=== PATIENT | female | born 1970 | race Caucasian/White ===

== ENCOUNTER → 2017-10-10 11:59 | Outpatient (CLI) | payer OTHER, MEDICAID, SELFPAY ==
[2017-10-10 13:08] LABS: Add Manual Diff / Slide Review NO; Basophils Percent Auto 0.8 % (0-2); Eosinophils Percent Auto 5.2 % (2-4); Hemoglobin 14.4 g/dL (12.0-16.0); Lymphocytes Percent Auto 27.9 % (25-40); Mean Corpuscular HGB Conc 34.4 % (30-36); Mean Corpuscular Hemoglobin 27.9 PG (26-34); Mean Corpuscular Volume 81.3 fL (80-100); Monocytes Percent Auto 4.9 % (3-14); Neutrophils Absolute Auto 5200 /uL (3000-5900); Neutrophils Percent Auto 61.2 % (50-75); Platelet Count 272 X10^3/uL (150-400); Red Blood Cell Count 5.16 X10^6/uL (4.0-5.2); Red Cell Distribution Width 14.1 % (11.6-14.8); White Blood Cell Count 8.6 X10^3/uL (4.5-11.0)
[2017-10-10 13:45] LABS: Alanine Aminotransferase 23 IU/L (9-52); Albumin 4.4 g/dL (3.5-5.0); Albumin Globulin Ratio 1.5 (1.0-2.8); Alkaline Phosphatase 84 U/L (38-126); Aspartate Aminotransferase 17 IU/L (14-36); BUN Creatinine Ratio 26.7 (6-22); Bilirubin Total 0.4 mg/dL (0.2-1.3); Bilirubin Unconjugated 0.2 mg/dL (0.0-1.1); Calcium 9.5 mg/dL (8.4-10.2); Cholesterol 190 mg/dL (140-199); Estimated Glomerular Filt Rate > 60.0 mL/min (>60); Glucose 98 mg/dL (70-100); HDL Cholesterol 63 mg/dL (40-60); HEMOLYSIS < 15 (0-50); LDL Cholesterol Calculated 108 mg/dL (<100); Potassium 4.1 mmol/L (3.4-5.1); Sodium 140 mmol/L (137-145); Total Protein 7.4 g/dL (6.3-8.2); Triglycerides 95 mg/dL (35-150)
[2017-10-10 14:03] LABS: Free T4, Direct Thyroxine 0.73 ng/dL (0.78-2.19)
[2017-10-10 14:17] LABS: Thyroid Stimulating Hormone 1.56 uIU/mL (0.47-4.68)
== END ==
PROVIDERS: Family Provider Family Medicine; PCP Family Medicine; Visit Provider Family Medicine
DX: B18.2 Chronic viral hepatitis C (principal)
CPT/HCPCS: 36415; 80053; 80061; 80076; 84439; 84443; 85025; 87522

== ENCOUNTER → 2017-11-25 11:49 | Outpatient (CLI) | payer OTHER, MEDICAID, SELFPAY ==
[2017-11-25 13:40] LABS: Free T4, Direct Thyroxine 0.72 ng/dL (0.78-2.19)
[2017-11-25 13:41] LABS: Free T3, Triiodothyronine Free 2.59 pg/mL (2.77-5.27)
[2017-11-25 13:53] LABS: Thyroid Stimulating Hormone 1.37 uIU/mL (0.47-4.68)
== END ==
PROVIDERS: Family Provider Family Medicine; PCP Family Medicine; Visit Provider Family Medicine
DX: E03.9 Hypothyroidism, unspecified (principal); E78.5 Hyperlipidemia, unspecified
CPT/HCPCS: 36415; 84439; 84443; 84481

== ENCOUNTER → 2017-12-08 15:11 | Outpatient (CLI) | payer OTHER, MEDICAID, SELFPAY ==
[2017-12-08 17:03] LABS: HEMOLYSIS < 15 (0-50); Iron 72 ug/dL (37-170)
[2017-12-08 17:04] LABS: Cholesterol 223 mg/dL (140-199); HDL Cholesterol 82 mg/dL (40-60); LDL Cholesterol Calculated 108 mg/dL (<100); Magnesium 2.5 mg/dL (1.6-2.3); Triglycerides 166 mg/dL (35-150)
[2017-12-08 17:13] LABS: Percent Iron Saturation 21 % (15-50); Total Iron Binding Capacity 348 ug/dL (265-497); Transferrin 298 mg/dL (206-381)
[2017-12-08 17:34] LABS: Cortisol Random 10.8 ug/dL
[2017-12-08 17:38] LABS: Ferritin 28.4 ng/mL (6.27-137)
[2017-12-08 18:09] LABS: Folate > 20.0 ng/mL (2.76-20.0); Vitamin B12 443 pg/mL (239-931)
[2017-12-08 19:21] LABS: Vitamin D 25 Hydroxy (D3) 24.6 ng/mL (30.0-100.0)
[2017-12-10 15:43] LABS: Adrenocorticotropic Hormone 17 pg/mL (6-50); Thyroid Peroxidase Antibodies < 1 IU/mL (< 9)
[2017-12-10 21:36] LABS: Estrogen 331.3 pg/mL
== END ==
PROVIDERS: PCP Family Medicine; Visit Provider Family Medicine
DX: R53.83 Other fatigue (principal); E78.5 Hyperlipidemia, unspecified
CPT/HCPCS: 36415; 80061; 82024; 82306; 82533; 82607; 82672; 82728; 82746; 83540; 83550; 83735; 84432; 84482; 86376

== ENCOUNTER → 2017-12-29 14:18 | Outpatient (CLI) | payer OTHER, MEDICAID, SELFPAY ==
[2017-12-29 14:34] LABS: Add Manual Diff / Slide Review NO; Basophils Percent Auto 0.7 % (0-2); Eosinophils Percent Auto 8.3 % (2-4); Hematocrit 39.6 % (36-46); Hemoglobin 13.7 g/dL (12.0-16.0); Lymphocytes Percent Auto 29.5 % (25-40); Mean Corpuscular HGB Conc 34.6 % (30-36); Mean Corpuscular Hemoglobin 29.3 PG (26-34); Mean Corpuscular Volume 84.7 fL (80-100); Monocytes Percent Auto 5.6 % (3-14); Neutrophils Absolute Auto 4900 /uL (3000-5900); Neutrophils Percent Auto 55.9 % (50-75); Platelet Count 300 X10^3/uL (150-400); Red Blood Cell Count 4.68 X10^6/uL (4.0-5.2); Red Cell Distribution Width 13.8 % (11.6-14.8); White Blood Cell Count 8.7 X10^3/uL (4.5-11.0)
[2017-12-29 15:11] LABS: HCG Quantitative /Beta subunit < 2.39 mIU/mL
[2017-12-29 15:49] LABS: Thyroid Stimulating Hormone 1.35 uIU/mL (0.47-4.68)
[2018-01-03 12:22] LABS: Triiodothyronine T3 Reverse 18 ng/dL (8-25)
== END ==
PROVIDERS: Family Provider Family Medicine; PCP Family Medicine; Visit Provider Family Medicine
DX: R53.83 Other fatigue (principal); N92.0 Excessive and frequent menstruation with regular cycle
CPT/HCPCS: 36415; 84443; 84482; 84702; 85025

== ENCOUNTER → 2018-01-17 11:08 | Outpatient (CLI) | payer OTHER, MEDICAID, SELFPAY ==
--- NOTE | 2018-01-17 11:09 | DI.US.S_ITS ---
PROCEDURE: US PELVIC COMPLETE INDICATIONS: vaginal bleeding TECHNIQUE: Real-time scanning was performed of the pelvic organs, with image documentation. Additional endovaginal scanning was necessary due to incomplete visualization of the adnexal and endometrial structures by transabdominal scanning. COMPARISON: [facility], PELVIC COMPLETE, 07/01/2016, 7:23. [facility], , PELVIC COMPLETE, 11/22/2007, 8:38. FINDINGS: Transabdominal scanning: Limited scanning through the kidneys shows no hydronephrosis. No pathologic free abdominal or pelvic fluid. Endovaginal scanning: Uterus: Uterus is normal in size at 5.4 x 5.9 x 9.7 cm, anteverted. The endometrium measures 7.0 mm in combined thickness. Ovaries: The ovaries not visualized likely due to overlying bowel gas. Depending on the clinical status there may be also postmenopausal ovarian atrophy. IMPRESSION: Normal-appearing uterus, normal appearing endometrium, nonvisualization of the ovaries bilaterally due to bowel gas and presumed postmenopausal ovarian atrophy. Dictated by: Davi Garcia M.D. on 01/17/2018 at 13:47 Approved by: Davi Garcia M.D. on 01/17/2018 at 13:48
== END ==
PROVIDERS: Family Provider Family Medicine; PCP Family Medicine; Visit Provider Family Medicine
DX: N93.9 Abnormal uterine and vaginal bleeding, unspecified (principal)
CPT/HCPCS: 76830; 76856

== ENCOUNTER → 2018-02-27 18:58 | Outpatient (CLI) | payer OTHER, MEDICAID, SELFPAY ==
--- NOTE | 2018-02-27 18:59 | DI.MRI.S_ITS ---
PROCEDURE: MR CERVICAL SPINE WO CON INDICATIONS: pain TECHNIQUE: Noncontrast sagittal T1 spin echo and T2 fast spin echo, sagittal STIR, foraminal oblique sagittal T2 fast spin echo, and axial gradient echo or T2 fast spin echo through the cervical spine. COMPARISON: [facility], , CERVICAL SPINE 2 OR 3 VIEWS, 01/26/2011, 9:42. [facility], MR, C-SPINE WITHOUT CONTRAST, 02/03/2011, 8:13. [facility], MR, C-SPINE WITHOUT CONTRAST, 11/19/2011, 21:01. [facility], MR, C-SPINE WITHOUT CONTRAST, 07/17/2013, 8:31. FINDINGS: Image quality: Diagnostic, with note made of motion artifact. Alignment and Curvature: There is normal bony alignment. Bone Marrow: Marrow demonstrates normal overall signal. Spinal Cord: Visualized spinal cord has normal size and signal. No cerebellar tonsillar herniation. Paraspinous Soft Tissues: No paravertebral masses. Prevertebral soft tissues are normal in thickness. C2-C3: The disc height is well-preserved. Loss of disc signal is seen at this level. Mild generalized disc bulge is seen. There is moderate right-sided and no left-sided neural foraminal narrowing seen. No significant central canal narrowing is seen. Compared to 2014, these degenerative changes have progressed. C3-C4: Mild loss of disc height is seen. Loss of disc signal is seen. Moderate generalized disc osteophyte complex is seen. Moderate facet hypertrophy is seen, left worse than right. There is moderate to severe bilateral neural foraminal narrowing seen. Moderate central canal narrowing is seen. When compared to the prior images, these imaging findings are considered to be not significantly changed. C4-C5: Mild to moderate loss of disc height and disc signal are seen. Moderate to prominent disc osteophyte complex is seen, which is eccentric to the left. There is a left lateral recess/foraminal disc osteophyte protrusion seen, as on series 3 images 21 and 22. Moderate facet joint hypertrophy is seen. There is moderate to severe bilateral neural foraminal narrowing seen. Moderate to severe central canal narrowing is seen. These degenerative changes have progressed compared to 2014. C5-C6: Moderate loss of disc height is seen. Loss of disc signal is seen. Moderate to prominent disc osteophyte complex is seen. Uncovertebral joint hypertrophy is seen at this level. There is moderate to severe bilateral neural foraminal narrowing seen. Severe central canal narrowing is seen in compared to 2014, these degenerative changes have progressed. C6-C7: Mild loss of disc height is seen. Loss of disc signal is seen. Moderate generalized disc osteophyte complex is seen. Moderate facet joint hypertrophy is seen. There is moderate to severe left-sided and at least moderate right-sided neural foraminal narrowing seen. Moderate central canal narrowing is seen. These degenerative changes have progressed compared to the prior MRI. C7-T1: The disc height is relatively well-preserved. Mild to moderate disc osteophyte complex is seen, which is eccentric to the left. There is moderate left-sided and no significant right-sided neural foraminal narrowing. No significant central canal narrowing is seen. These degenerative changes are progressed compared to 2014. IMPRESSION: Multiple levels of cervical spine degenerative change are seen, which have progressed compared to 2014. The degenerative changes are most prominent at the C5-C6 level. Dictated by: Avi Garcia M.D. on 02/28/2018 at 8:46 Approved by: Avi Garcia M.D. on 02/28/2018 at 8:58
== END ==
PROVIDERS: PCP Family Medicine; Visit Provider Family Medicine
DX: M50.31 Other cervical disc degeneration, high cervical region (principal)
CPT/HCPCS: 72141

== ENCOUNTER → 2018-03-09 10:47 | Outpatient (CLI) | payer OTHER, MEDICAID, SELFPAY ==
[2018-03-09 14:10] LABS: Vitamin D 25 Hydroxy (D3) 35.1 ng/mL (30.0-100.0)
== END ==
PROVIDERS: PCP Family Medicine; Visit Provider Family Medicine
DX: E55.9 Vitamin D deficiency, unspecified (principal)
CPT/HCPCS: 36415; 82306

== ENCOUNTER → 2018-05-29 14:27 | Outpatient (CLI) | payer OTHER, MEDICAID, SELFPAY ==
--- NOTE | 2018-05-29 14:32 | DI.RAD.S_ITS ---
PROCEDURE: XR CHEST 2V INDICATIONS: dyspnea on exertion TECHNIQUE: 2 views of the chest were acquired. COMPARISON: [facility], , CHEST 2 VIEW, 11/27/2014, 11:07. FINDINGS: Surgical changes and devices: None. Lungs and pleura: No pleural effusions or pneumothorax. Lungs are clear. Mediastinum: Mediastinal contours are normal. Heart size is normal. Bones and chest wall: No suspicious bony abnormalities. Soft tissues appear unremarkable. IMPRESSION: No acute cardiopulmonary pathology. Dictated by: Daron Clark M.D. on 05/29/2018 at 16:10 Approved by: Daron Clark M.D. on 05/29/2018 at 16:10
[2018-05-29 15:01] LABS: Add Manual Diff / Slide Review NO; Basophils Percent Auto 0.5 % (0-2); Eosinophils Percent Auto 4.5 % (2-4); Hematocrit 39.6 % (36-46); Hemoglobin 13.4 g/dL (12.0-16.0); Lymphocytes Percent Auto 30.1 % (25-40); Mean Corpuscular HGB Conc 33.9 % (30-36); Mean Corpuscular Hemoglobin 28.1 PG (26-34); Mean Corpuscular Volume 82.7 fL (80-100); Neutrophils Absolute Auto 5300 /uL (1500-7000); Neutrophils Percent Auto 58.9 % (50-75); Platelet Count 332 X10^3/uL (150-400); Red Blood Cell Count 4.78 X10^6/uL (4.0-5.2); Red Cell Distribution Width 13.6 % (11.6-14.8)
[2018-05-29 15:29] LABS: Alanine Aminotransferase 23 IU/L (9-52); Albumin 4.2 g/dL (3.5-5.0); Albumin Globulin Ratio 1.6 (1.0-2.8); Alkaline Phosphatase 66 U/L (38-126); Aspartate Aminotransferase 20 IU/L (14-36); Bilirubin Total 0.2 mg/dL (0.2-1.3); Blood Urea Nitrogen 18 mg/dL (7-17); Calcium 9.8 mg/dL (8.4-10.2); Carbon Dioxide 26 mmol/L (22-32); Chloride 104 mmol/L (98-107); Estimated Glomerular Filt Rate > 60.0 mL/min (>60); Globulin 2.6 g/dL (1.7-4.1); Glucose 94 mg/dL (70-100); HEMOLYSIS 20 (0-50); Potassium 4.2 mmol/L (3.4-5.1); Sodium 139 mmol/L (137-145); Total Protein 6.8 g/dL (6.3-8.2)
[2018-05-29 15:41] LABS: Vitamin D 25 Hydroxy (D3) 41.2 ng/mL (30.0-100.0)
[2018-05-29 15:43] LABS: Free T3, Triiodothyronine Free 2.61 pg/mL (2.77-5.27); Free T4, Direct Thyroxine 1.29 ng/dL (0.78-2.19)
[2018-05-29 15:57] LABS: Thyroid Stimulating Hormone 1.17 uIU/mL (0.47-4.68)
[2018-05-29 16:16] LABS: Vitamin B12 525 pg/mL (239-931)
== END ==
PROVIDERS: PCP Family Medicine; Visit Provider Family Medicine
DX: R06.09 Other forms of dyspnea (principal)
CPT/HCPCS: 36415; 71046; 80053; 82306; 82607; 84439; 84443; 84481; 85025

== ENCOUNTER 2018-06-27 12:32 | Day surgery (SDC) | payer OTHER, MEDICAID, SELFPAY ==
[2018-06-27 13:10] VITALS: BP 137/94; PULSE 88; RESP 16; TEMP 36.5; O2SAT 94; BMI 37.3
--- NOTE | 2018-06-27 13:46 | PM.HP.1 ---
History of Present Illness Date Patient Seen: 06/27/18 Time Patient Seen: 13:46 Chief complaint: 44550 SCREENING COLONOSCOPY Narrative: Nick is a very pleasant 48-year-old lady who is here for her 1st colonoscopy. She reports that it is just screening study for her but she does admit she has lots of trouble with constipation. She says it is not a new issue. She has had difficulty with constipation most of her life. She denies any new problems or symptoms related to the function of her GI tract and reports that she needs colonoscopy as per the health maintenance program. Patient History Medical History Anxiety (Chronic ~2013) Depression (Chronic ~1981) Hepatitis C (Chronic ~1988) Herniated disc (Chronic ~2010) Herpes (Chronic ~1989) Post traumatic stress disorder (PTSD) (Chronic ~2010) Substance abuse (Chronic ~1981) Social History household members: family Smoking Status: Former smoker Family & Social History Social History: household members family Tobacco & Substance use: Smoking Status Former smoker Meds Home Medications Medication Instructions Recorded Confirmed Type cetirizine 10 mg PO QDAY PRN #90 tab 11/14/17 06/27/18 Rx omeprazole 20 mg tablet,delayed 20 mg PO BID #60 tab 12/29/17 06/27/18 Rx release duloxetine 60 mg capsule,delayed 60 mg PO QDAY #30 cap 01/05/18 05/29/18 Rx release bupropion HCl [Wellbutrin SR] 150 mg PO BID #60 tab 03/07/18 06/27/18 Rx norethindrone-ethinyl estradiol 1 1 tab PO DAILY #63 tab 03/08/18 06/27/18 Rx mg-35 mcg tablet meloxicam 15 mg tablet 15 mg PO [facility] #90 tab 04/14/18 06/27/18 Rx dextroamphetamine-amphetamine 20 20 mg PO BID #60 tab 05/25/18 06/27/18 Rx mg tablet pregabalin 50 mg capsule 100 mg PO BID #120 cap 06/02/18 06/27/18 Rx duloxetine [Cymbalta] 90 mg PO QDAY 06/27/18 06/27/18 History Allergies Allergy/AdvReac Type Severity Reaction Status Date / Time No Known Drug Allergies Allergy Verified 05/29/18 13:31 Review of Systems Review of Systems All systems reviewed & are unremarkable except as noted in HPI and below Exam Vital Signs (past 8 hours): - 06/27/18 13:10 Temperature 97.7 F Pulse Rate 88 Respiratory Rate 16 Blood Pressure 137/94 H Pulse Oximetry 94 Oxygen Delivery Method Room Air Narrative Exam Narrative: Pleasant, well-nourished, and well-developed 48-year-old lady in no obvious distress HEENT: Normocephalic and atraumatic, pupils equal round reactive to light accommodation with anicteric sclera Lungs: Clear bilaterally Heart: Regular rate and rhythm without murmur rub or gallop Abdomen: Soft, nontender, active bowel sounds Extremities: Warm and well perfused and without edema. Assessment & Plan Plan: Assessment/Plan Narrative: Pleasant and healthy 48-year-old lady with longstanding history of constipation who presents for her 1st screening colonoscopy. We discussed the risks and benefits of the procedure the patient expressed a desire to completed today.
[2018-06-27] MEDS: fentaNYL 250 MCG/5 ML INJ IV (14:42)
[2018-06-27 14:44] VITALS: BP 117/85; PULSE 96; RESP 14; TEMP 36.4; O2SAT 96
[2018-06-27] MEDS: MIDAZOLAM 5 MG/5 ML VIAL IV (14:44)
--- NOTE | 2018-06-27 14:47 | PM.OP.1 ---
Operative Date/Time/Diagnoses Date of procedure: 06/27/18 Time of procedure: 14:47 Pre-op diagnosis: Screening Post-op diagnosis: same Procedure & Clinicians Procedure: Colonoscopy to the cecum Same procedure as scheduled: Yes Indications: No prior colonoscopy Surgeon: Ana Tineo Anesthesia Type: Sedation (Versed 12 mg; fentanyl 350 mcg) Operative Notes Findings: 1. Adequate prep 2. No polyps or mass lesions 3. One 2 mm av malformation in the descending colon. No active bleeding or evidence of recent hemorrhage 4. Mildly tortuous: 5. No visible diverticula 6. Grade 1 internal hemorrhoids Closure Type: not applicable Specimen(s): none sent Procedure in detail: After obtaining informed consent, the patient was brought to the GI suite and placed in the left lateral decubitus position on the examination table. After placement of appropriate monitors, the patient was given incremental doses of Versed and Fentanyl until an appropriate level of sedation was achieved. A time out was held per SCOAP protocol. A digital rectal examination was performed and did not reveal any masses or obstructing lesions. The colonoscope was gently passed into the patient's anus and the entire colon navigated to the level of the cecum with minimal difficulty. Once in the cecum, the scope was withdrawn being sure to go before and beyond all mucosal folds and prominences and get an excellent examination. The findings are noted above. At the level of the rectal vault, the scope was retroflexed and the internal anal canal was examined. The scope was straightened and air aspirated from the colon. The instrument was removed from the patient's body and the procedure was concluded. The patient was allowed to awaken from sedation without difficulty and taken to the post-anesthesia care unit in good condition. Total sedation time was 47 min Total withdrawal time was 10 min 22 sec Complications: none Condition: stable Disposition: PACU Plan for aftercare: 1. Discharge to home 2. Plan for next colonoscopy in 10 years or as clinically indicated
[2018-06-27 14:49] VITALS: BP 121/88; PULSE 83; RESP 18; O2SAT 96
[2018-06-27 14:55] VITALS: BP 148/91; PULSE 79; RESP 16; O2SAT 95
== END 2018-06-27 15:10 | disposition home or self-care (01) ==
PROVIDERS: PCP Family Medicine; Visit Provider Surgery
PROC: 0DJD8ZZ Inspection of Lower Intestinal Tract, Via Natural or Artificial Opening Endoscopic (ICD-10-PCS; CPT 45378; principal; 2018-06-27 14:00)
DX: Z12.11 Encounter for screening for malignant neoplasm of colon (principal); K64.0 First degree hemorrhoids; F41.9 Anxiety disorder, unspecified; Z87.891 Personal history of nicotine dependence
CPT/HCPCS: 45378; 99152; 99153; J2250; J3010

== ENCOUNTER 2018-08-15 09:41 | Outpatient (CLI) | payer OTHER, MEDICAID, SELFPAY ==
[2018-08-15] VITALS (9 sets, daily range): BP systolic 114–124; BP diastolic 61–87; PULSE 75–83; RESP 16–18; TEMP 36.3; O2SAT 95–100
--- NOTE | 2018-08-15 09:42 | DI.RAD.S_ITS ---
PROCEDURE: PAIN C/T INTERLAMINAR INJECT INDICATIONS: Cervical radiculopathy FINDINGS: Fluoroscopic spot filming was performed to verify placement of spinal needles at the left C6-7 level(s), as labeled on the films. Appropriate location(s) of the needle tip(s) was confirmed by injection of iodinated contrast. IMPRESSION: Intraoperative fluoroscopy provided for C6-C7 epidural steroid injection. Dictated by: Lilibeth De La Rosa M.D. on 08/15/2018 at 12:51 Approved by: Lilibeth De L aRosa M.D. on 08/15/2018 at 12:51
[2018-08-15] MEDS: MIDAZOLAM 5 MG/5 ML VIAL IV (10:30)
[2018-08-15] MEDS: fentaNYL 100 MCG/2 ML INJ 50 MCG IV (10:31)
[2018-08-15] MEDS: DEXAMETHASONE 10 MG/ML VIAL 20 MG INJ (10:34)
[2018-08-15] MEDS: LIDOCAINE 1% 20 ML INJ 5 ML INJ (10:34)
[2018-08-15] MEDS: IOPAMIDOL 15 ML VIAL 3 ML INJ (10:35)
--- NOTE | 2018-08-15 10:40 | PC.NURSE ---
ASSISTING PT OFF TABLE AND TRANSPORTING TO POST PROC AREA IN STABLE CONDITION
--- NOTE | 2018-08-15 10:47 | P.PCN_ITS ---
Procedures Date/Time Date of procedure: 08/15/18 Time of procedure: 10:46 General Procedure description: PREOP DIAGNOSIS 1. CERVICAL STENOSIS, 2. CERVICAL HNP WITH UPPER EXTREMITY RADICULAR FEATURES, POST OP DIAGNOSIS 1. CERVICAL STENOSIS, 2. CERVICAL HNP WITH UPPER EXTREMITY RADICULAR FEATURES, PROCEDURES 1. FLUORSCOPICALLY GUIDED CONTRAST CONTROLLED INTERLAMINAR EPIDURAL STEROID INJECTION - C6/7 TL IZABELLA PHYSICIAN: Harrison Martin, DO INDICATIONS Nick is referred by Dr. Alejandre for treatment of Cervical HNP with Upper Extremity Paresthesias. FINDINGS Cervical Stenosis due to disc deterioration and nerve root irritation and nerve root irritation DESCRIPTION OF PROCEDURE Fluoroscopically guided, contrast-controlled C6/7 translaminar epidural steroid injection with conscious sedation. Following denial of allergy and review of potential side effects and complications, including, but not necessarily limited to, infection, allergic reaction, local tissue breakdown, temporary as well as permanent nerve injury, stroke, paralysis, and possible , the patient indicated that patient understood and agreed to proceed. An informed consent document was signed by the patient, witnessed by a nurse, and placed in the patient's chart. Additionally, other treatment options including modalities, medications, and physical therapy were reviewed with the patient. After review of previous anaesthesic history and IV conscious sedation the patient was deemed safe to proceed with todays procedure with IV conscious sedation as ASA class II designation. Safety time-out was performed to confirm patient ID, procedure to be performed and site of procedure. IV sedation was accomplished with a combination of 3mg of Versed and 50mcg of Fentanyl administered by the RN after DO order, titrated to patient comfort during the course of the procedure while the patient remained responsive to all verbal commands. In the prone position, following sterile prep and drape of the cervical region, the C6/7 translaminar space was identified fluoroscopically. The skin was anesthetized via a 25-gauge 1.5-inch needle with 1% lidocaine solution. At this point, a 25-gauge, 2.5-inch short bevel spinal needle was atraumatically in troduced and advanced under fluoroscopic guidance into epidural space at the C6/7 translaminar space. Depth was confirmed on lateral view. Radiological data, including multiple fluoroscopic views of the cervical spine, reveal a spinal needle at the C6/7 translaminar space. Lateral views then show placement of the needle in the epidural space. Subsequent views show contrast material flowing superiorly and inferiorly in the epidural space. DSA fluoroscopy with live contrast injection, once again, confirmed no vascular or intrathecal uptake. At this point, using loss of resistance technique with saline and air, the epidural space was entered. Following negative aspiration, injection of approximately 1.5 cc of Isovue-200 with live fluoroscopy in the AP view confirmed epidural flow in the epidural space without vascular or intrathecal uptake observed. Subsequently, a test dose of 1 cc of 1% lidocaine solution was injected and patient was observed for two minutes without signs or symptoms of complications, including abdominal pain, shortness of breath, bilateral upper or lower extremity weakness, nausea and vomiting, prior to steroid injection. At this point, 2cc or 20mg of dexamethasone was then injected without incident. The patient tolerated the procedure well without signs or symptoms of complications prior to being transferred to the recovery area for further monit oring, The patient was then transferred to the recovery area where they were observed for an appropriate period of time after the injection. The patient reported a VAS score of 6 prior to the procedure and a post-procedure VAS of 0. Total Fluoroscopy Time: 37.0 seconds Total Conscious Time: 24min POST OP INSTRUCTIONS The patient was provided a Pain Log to continue to record their response to the target-specific procedure prior to follow-up visit with the referring provider. Additionally, specific post-injection care instructions and a contact number to our office were provided if concerns arise regarding possible complications associated with the procedure are suspected. Harrison Martin DO Complications: none
--- NOTE | 2018-08-15 11:13 | PC.NURSE ---
Pt returned from post procedure awake, alert and able to move from wheelchair to chair with standby assist. Resumed monitoring from Pat THAPA.
--- NOTE | 2018-08-16 12:59 | PC.NURSE ---
FOLLOW UP CALL MADE, LEFT PHONE MSG WITH CLINIC # IN CASE OF QUESTIONS/CONCERNS.
== END 2018-08-15 11:15 ==
LOC: RAD 09:41
PROVIDERS: PCP Family Medicine; Visit Provider Physical Medicine & Rehabilitation
DX: M48.02 Spinal stenosis, cervical region (principal); M50.123 Cervical disc disorder at C6-C7 level with radiculopathy; M47.22 Other spondylosis with radiculopathy, cervical region; M96.1 Postlaminectomy syndrome, not elsewhere classified; R51 Headache
CPT/HCPCS: 62321; 99152; J1100; J2250; J3010

== ENCOUNTER → 2018-10-27 15:44 | Outpatient (CLI) | payer OTHER, MEDICAID, SELFPAY ==
--- NOTE | 2018-10-27 15:46 | DI.MRI.S_ITS ---
PROCEDURE: MR LUMBAR SPINE WO CON INDICATIONS: radiculopathy TECHNIQUE: Noncontrast sagittal T1 spin echo and T2 fast echo, sagittal STIR, axial T1 and T2 fast spin echo through the lumbar spine. Coronal T1 and T2 sequences of the sacrum. COMPARISON: [facility], MR, L-SPINE W&WO CONTRAST, 01/31/2017, 7:08. [facility], CR, L-SPINE 2-3 VIEWS, 01/18/2017, 15:52. FINDINGS: Image quality: Excellent. Alignment and Curvature: 5 lumbar type vertebral bodies are present by plain film. Mild grade 1 retrolisthesis of L1 on L2 and L2 on L3. Mild grade 1 anterolisthesis of L3 on L4. Bone Marrow: Marrow is of normal overall signal. No acute vertebral body compression fractures. Moderate reactive signal within the endplates adjacent to the L2-L3 intervertebral disc. Mild reactive signal within the endplates adjacent to the L3-L4 intervertebral disc. L2 hemangioma. Sacroiliac joints are within normal limits. Spinal Cord: Conus medullaris terminates at the L1-L2 disc space level. Visualized cord demonstrates normal signal and size. Paraspinous Soft Tissues: No paravertebral masses. 22 mm diameter right ovarian cyst. L1-L2: Moderate disc height loss and desiccation. Mild diffuse disc bulge with superimposed left paracentral protrusion, new since the prior examination. Mild epidural lipomatosis. Mild facet and ligamentum flavum hypertrophy. There is increased, moderate canal stenosis. There is increased, mild left foraminal stenosis. No right foraminal stenosis. There is new mild posterior deviation of the left L2 nerve root within the lateral recess. L2-L3: Severe disc height loss and desiccation. Mild diffuse disc bulge/osteophyte. Mild facet and ligamentum flavum hypertrophy. Mild epidural lipomatosis. There is increased, moderate canal stenosis. There is no change in moderate right and mild left foraminal stenosis. L3-L4: Moderate disc height loss and desiccation. Moderate diffuse disc bulge. Moderate facet hypertrophy bilaterally. Increased, severe canal stenosis. Increased, severe right foraminal stenosis associated with right L3 nerve root compression. No change in moderate left foraminal stenosis. L4-L5: Moderate disc height loss and desiccation. Mild diffuse disc bulge. Mild facet and ligamentum flavum hypertrophy. Mild canal stenosis. Moderate bilateral foraminal stenosis. No change. L5-S1: Moderate disc height loss and desiccation. Mild diffuse disc bulge. Mild facet hypertrophy bilaterally. Mild canal stenosis. Mild bilateral foraminal stenosis. No change. IMPRESSION: 1. Multilevel degenerative disc and facet disease, as well as ligamentum flavum hypertrophy and epidural lipomatosis. 2. Multilevel canal stenoses, worse at L3-L4, where there is severe canal stenosis present. Increased, moderate L1-L2 and L2-L3 canal stenoses. 3. Multilevel foraminal stenoses, worst at L3-L4 on the right, where there is associated right L3 nerve root compression. 4. New mild posterior deviation of the left L2 nerve root within the lateral recess at L1-L2. 5. Recommend correlation with clinical symptoms to ascertain relevance of this finding. Dictated by: Dmitry Wilson M.D. on 10/27/2018 at 16:39 Approved by: Dmitry Wilson M.D. on 10/27/2018 at 16:46
== END ==
PROVIDERS: PCP Family Medicine; Visit Provider Physical Medicine & Rehabilitation
DX: M51.16 Intervertebral disc disorders with radiculopathy, lumbar region (principal); M51.17 Intervertebral disc disorders with radiculopathy, lumbosacral region; M48.061 Spinal stenosis, lumbar region without neurogenic claudication; M48.07 Spinal stenosis, lumbosacral region; E88.2 Lipomatosis, not elsewhere classified
CPT/HCPCS: 72148

== ENCOUNTER 2018-11-09 14:58 | Outpatient (CLI) | payer OTHER, MEDICAID, SELFPAY ==
[2018-11-09] VITALS (8 sets, daily range): BP systolic 109–131; BP diastolic 71–80; PULSE 77–94; RESP 16–18; TEMP 36.2; O2SAT 95–97
--- NOTE | 2018-11-09 15:00 | DI.RAD.S_ITS ---
PROCEDURE: PAIN L/S TRANSFORAMINAL INJECT INDICATIONS: SPONDYLOSIS FINDINGS: Fluoroscopic spot filming was performed to verify placement of spinal needles at the L3-L4 level(s), as labeled on the films. Appropriate location(s) of the needle tip(s) was confirmed by injection of iodinated contrast. Dictated by: Madi Garcia M.D. on 11/10/2018 at 10:13 Approved by: Madi Garcia M.D. on 11/10/2018 at 10:14
[2018-11-09] MEDS: fentaNYL 100 MCG/2 ML INJ 50 MCG IV (15:35)
[2018-11-09] MEDS: MIDAZOLAM 5 MG/5 ML VIAL IV (15:35)
[2018-11-09] MEDS: IOPAMIDOL 15 ML VIAL 3 ML INJ (15:37)
[2018-11-09] MEDS: BUPIVACAINE 0.25% (PF) VIAL 2 ML INJ (15:37)
[2018-11-09] MEDS: BETAMETHASONE 30 MG/5 ML MDV 12 MG INJ (15:39)
--- NOTE | 2018-11-09 15:47 | PC.NURSE ---
Pt tolerated procedure well. Able to get off table with standby assist. Transferred pt via wheelchair to pre procedure room awake and alert for continued monitoring with Pat THAPA.
--- NOTE | 2018-11-09 15:49 | P.PCN_ITS ---
Procedures Date/Time Date of procedure: 11/09/18 Time of procedure: 15:48 General Procedure description: PROVIDER: Harrison Martin DO Operative Note PREOP DIAGNOSIS 1. FORAMINAL STENOSIS WITH LE SYMPTOMS, POST OP DIAGNOSIS 1. FORAMINAL STENOSIS WITH LE SYMPTOMS, PROCEDURES 1. FLUOROSCOPICALLY GUIDED CONTRAST CONTROLLED TRANSFORAMINAL EPIDURAL STEROID INJECTION - RIGHT L3/4 TFESI SURGEON: Harrison Martin, INDICATIONS Nick is referred by Dr. Alejandre for treatment of Foraminal Stenosis with right LE Symptoms FINDINGS Foraminal Nerve Root Compression secondary to disc disease and facet hypertrophy DESCRIPTION OF PROCEDURE Following review of allergy and review of potential side effects and complications, including, but not necessarily limited to, infection, allergic reaction, local tissue breakdown, stroke, temporary or permanent nerve injury, paralysis, and possible , the patient indicated that the patient understood and agreed to proceed. An informed consent document was signed by the patient, witnessed by a nurse, and placed in the patient's chart. Additionally, other treatment options including medications, modalities, and physical therapy were reviewed with the patient. After review of previous anaesthesic history and IV conscious sedation the patient was deemed safe to proceed with todays procedure with IV conscious sedation as ASA class II designation. Safety time-out was performed to confirm patient ID, procedure to be performed and site of procedure. IV sedation was accomplished with a combination of 5mg of Versed and 50mcg of Fentanyl was administered by the RN after DO order, titrated to patient comfort during the course of the procedure while the patient remained responsive to all verbal commands In the prone position following sterile prep and drape of the lumbar region, the right L3/4 posterior neuroforamen was identified fluoroscopically. The skin was anesthetized via a 25-gauge 1.5-inch needle with 1% lidocaine solution. At this point, a 25-gauge 3.5-inch spinal needle was atraumatically introduced and advanced under fluoroscopic guidance through the posterior right L3/4 neuroforamen to approximately the anterior aspect of the canal. Depth was confirmed on lateral view. Following negative aspiration, injection of approximately 1.5 cc of Isovue 200 under live fluoroscopy in the AP view confirmed excellent flow along the nerve root, into the epidural space without vascular or intrathecal uptake observed Radiological data, including multiple fluoroscopic views of the lumbosacral spine, reveal a spinal needle at the right L3/4 posterior neuroforamen. Subs equent views show flow of contrast material flowing superiorly and inferiorly along the nerve root confirming epidural flow. Subsequently, a test dose of 1.5 cc of 1% lidocaine solution was administered and patient was observed for two minutes for signs or symptoms of complications, including abdominal pain, shortness of breath, bilateral upper or lower extremity weakness, nausea and vomiting, prior to steroid injection. At this point, a total of 3cc or 18mg of betamethasone was injected without incident. The patient tolerated the procedure well without signs or symptoms of complications prior to transfer to the recovery area continued monitoring without incident. The patient was then transferred to the recovery area where they were observed for an appropriate time after the injection. The patient reported a VAS score of 7 prior to the procedure and a post-procedure VAS of 0. Total Fluoroscopy Time: 24.2 seconds Total Conscious Sedation Time: 24min POST OP INSTRUCTIONS The patient was provided a Pain Log to continue to record their response to the target-specific procedure prior to follow-up visit with their referring physician. Additionally, specific post-injection care instructions and a contact number to our office were provided if concerns arise regarding possible complications associated with the procedure are suspected. Harrison Martin, Complications: none
== END 2018-11-09 16:19 | disposition home or self-care (01) ==
LOC: RAD 14:59
PROVIDERS: PCP Family Medicine; Visit Provider Physical Medicine & Rehabilitation
DX: M48.061 Spinal stenosis, lumbar region without neurogenic claudication (principal); M51.16 Intervertebral disc disorders with radiculopathy, lumbar region
CPT/HCPCS: 64483; 99152; J0702; J2250; J3010

== ENCOUNTER → 2019-02-16 08:40 | Outpatient (CLI) | payer OTHER, MEDICAID, SELFPAY ==
--- NOTE | 2019-02-16 08:42 | DI.US.S_ITS ---
PROCEDURE: US ABDOMEN COMPLETE INDICATIONS: ABDOMINAL PAIN TECHNIQUE: Real-time scanning was performed of the abdominal and retroperitoneal organs, with image documentation. COMPARISON: [facility], US, US PELVIC COMPLETE, 01/17/2018, 11:35. FINDINGS: Liver: Liver is normal in size and homogeneous in echotexture. Gallbladder: Multiple gallstones present. No gallbladder wall thickening or pericholecystic fluid. Negative sonographic Sheets sign. Biliary ducts: Intrahepatic bile ducts are non-dilated. Extrahepatic bile duct caliber measures 4.0 mm. Normal is 6-7 mm or less in diameter, or 10 mm or less post-cholecystectomy. Pancreas: Not well-visualized. Spleen: Spleen is normal in size and homogeneous in echotexture. Kidneys: Kidneys are normal in size and echotexture. Right kidney measures 11.0 cm long; left kidney measures 10.7 cm long. No hydronephrosis. Calcification noted within the mid aspect of the left kidney measuring 1.0 cm. No solid masses. Aorta: Visualized aorta is normal in caliber at less than 3 cm. Iliacs: Not well-seen. IVC: Intrahepatic inferior vena cava is patent. Miscellaneous: No free abdominal fluid. IMPRESSION: 1. Calcification measuring 1.0 cm above the left kidney which may be related to nonobstructing left renal calculus. If indicated, CT KUB could be performed. 2. Cholelithiasis without acute cholecystitis. Dictated by: Dave SALAS Interpreted: Kristal Jones MD on 02/16/2019 at 9:42 Approved by: Kristal Jones M.D. on 02/16/2019 at 10:51
== END ==
PROVIDERS: PCP Family Medicine; Visit Provider Nurse Practitioner Family
DX: R10.30 Lower abdominal pain, unspecified (principal); N20.0 Calculus of kidney; K80.20 Calculus of gallbladder without cholecystitis without obstruction
CPT/HCPCS: 76700

== ENCOUNTER 2019-03-08 10:55 | Outpatient (CLI) | payer OTHER, MEDICAID, SELFPAY ==
[2019-03-08] VITALS (9 sets, daily range): BP systolic 97–147; BP diastolic 60–91; PULSE 84–93; RESP 16–18; TEMP 37.1; O2SAT 84–98
--- NOTE | 2019-03-08 11:40 | DI.RAD.S_ITS ---
PROCEDURE: PAIN L/SI FACET INJ/BLK 1STL INDICATIONS: SPONDYLOSIS FINDINGS: Fluoroscopic spot filming was performed to verify placement of spinal needles at the L3-L4 level(s), as labeled on the films. Appropriate location(s) of the needle tip(s) was confirmed by injection of iodinated contrast. Dictated by: Madi Garcia M.D. on 03/08/2019 at 14:35 Approved by: Madi Garcia M.D. on 03/08/2019 at 14:36
[2019-03-08] MEDS: fentaNYL 100 MCG/2 ML INJ 50 MCG IV (12:08)
[2019-03-08] MEDS: MIDAZOLAM 5 MG/5 ML VIAL IV (12:13)
[2019-03-08] MEDS: LIDOCAINE 1% 20 ML 5 ML INJ (12:15)
[2019-03-08] MEDS: IOPAMIDOL 15 ML VIAL 3 ML INJ (12:15)
[2019-03-08] MEDS: BUPIVACAINE 0.5% (PF) VIAL 2 ML INJ (12:15)
--- NOTE | 2019-03-08 12:29 | P.PCN_ITS ---
Procedures Date/Time Date of procedure: 03/08/19 Time of procedure: 12:29 General Procedure description: PREOP DIAGNOSIS 1. FACET ARTHROPATHY 2. AXIAL LBP 3. MULTILEVEL DDD POST OP DIAGNOSIS 1. FACET ARTHROPATHY 2. AXIAL LBP 3. MULTILEVEL DDD PROCEDURES 1. FLUORSCOPICALLY GUIDED CONTRAST CONTROLLED FACET JOINT INJECTIONS BILATERAL L3/4, L4/5 PHYSICIAN: Harrison Martin DO INDICATIONS: Nick is referred by Dr. Aeljandre for treatment of Axial LBP FINDINGS Multilevel Facet Arthropathy with Clinically significant axial LBP DESCRIPTION OF PROCEDURE Fluoroscopically guided, contrast-controlled bilateral L3/4 facet joint inject ions. Following review of allergy and review of potential side effects and complications, including, but not necessarily limited to, infection, allergic reaction, local tissue breakdown, stroke, temporary or permanent nerve injury, paralysis, and possible , the patient indicated that the patient understood and agreed to proceed. An informed consent document was signed by the patient, witnessed by a nurse, and placed in the patient's chart. Additionally, other treatment options including medications, modalities, and physical therapy were reviewed with the patient. After review of previous anaesthesic history and IV conscious sedation the patient was deemed safe to proceed with todays procedure with IV conscious sedation as ASA class II designation. Safety time-out was performed to confirm patient ID, procedure to be performed and site of procedure. IV sedation was accomplished with a combination of 4mg of Versed and 50mcg of Fentanyl was administered by the RN after DO order, titrated to patient comfort during the course of the procedure while the patient remained responsive to all verbal commands. In the prone position, following sterile prep and drape of the lumbar region, the posterior aspect of the L3/4 facet joints were identified fluoroscopically. The skin was anesthetized via a 25-gauge 1.5-inch needle with 1% lidocaine solution into the corresponding facet joints. At this point, a 22- gauge 3.5-inch spinal needle was atraumatically introduced and advanced under fluoroscopic guidance into the corresponding facet joints. Following negative aspiration, injections of approximately 0.2-cc of Isovue 200 confirmed interarticular placement without vascular uptake. The identical procedure was then performed at the L3/4 facet joints on the left. Radiological data, including multiple fluoroscopic views of the lumbosacral spine, reveal a spinal needle at the L3/4 facet joints bilaterally. Subsequent views show flow of contrast material both superiorly and inferiorly within the joint space without vascular or intrathecal uptake. At this point, a total of 0.5cc including a mixture of 0.25cc Marcaine and 0.25cc betamethasone was injected without complication into each of the corresponding facet joints. The patient tolerated the procedure well without signs or symptoms of complications prior to transfer to the recovery area continued monitoring without incident. The patient was then transferred to the recovery area where they were observed for an appropriate period of time after the injection. The patient reported a VAS score of 7 prior to the procedure and a post-procedure VAS of 0. Total Fluoroscopy Time: 20.3 seconds Total Conscious Sedation Time: 24min POST OP INSTRUCTIONS The patient was provided a Pain Log to continue to record their response to the target-specific procedure prior to follow-up visit with their referring physician. Additionally, specific post-injection care instructions and a contact number to our office were provided if concerns arise regarding possible complications associated with the procedure are suspected. Harrison Martin, Complications: none
--- NOTE | 2019-03-08 12:36 | PC.NURSE ---
Post procedure note: Time out at 1206. Medicated with Versed 4 mg IV and 50 mcg Fentanyl IV per provider orders. VSS throughout procedure. O2 Sat WNL. Procedure end at 1224. Patient able to sit up and transfer to wheelchair without any difficulty. No unusual numbness or tingling to lower ext. Pain level 3/10. Transported for post procedure monitoring. Hand off report given to Duc Thomas RN.
== END 2019-03-08 13:15 | disposition home or self-care (01) ==
LOC: RAD 10:56
PROVIDERS: PCP Family Medicine; Visit Provider Physical Medicine & Rehabilitation
DX: M47.816 Spondylosis without myelopathy or radiculopathy, lumbar region (principal); M54.5 Low back pain; M51.36 Other intervertebral disc degeneration, lumbar region
CPT/HCPCS: 64493; 64494; 99152; J2250; J3010

== ENCOUNTER 2019-05-08 11:19 | Emergency (ER) | payer OTHER, MEDICAID, SELFPAY ==
[2019-05-08 12:24] VITALS: BP 118/102; PULSE 79; RESP 24; TEMP 36.2; O2SAT 97
[2019-05-08 12:43] VITALS: BP 120/90; PULSE 83; RESP 22; O2SAT 98
--- NOTE | 2019-05-08 12:44 | ED_ITS ---
HPI - Abdominal Pain General Chief Complaint: Abdominal Pain Stated Complaint: stomach pain Time Seen by Provider: 05/08/19 12:20 Source: patient Mode of arrival: Wheelchair Limitations: no limitations History of Present Illness HPI narrative: This 48-year-old female comes to ED secondary to persistent constipation, abdominal pain, nausea and intermittent vomiting. She states that she traveled to [place] about 2 weeks ago, and when she got there started having abdominal pain, constipation, and vomiting. She states she has also had ongoing right side and back pain for the last 2 months, cause has not been determined. She states she had evaluation there and was treated with pain medicine and antibiotics (unknown for what diagnosis), advised to remain in for observation but elected to discharge at that time. She states that she was able to having normal bowel movement for a day or so later. She states that she did travel to other places domestically, no foreign travel. She states that she got home last Tuesday and was seen at her PCP office, advised brat diet and abdominal x-ray was ordered but she states was in too much pain to complete this and was not done. She states that she has not had any bowel movement for about a week. She states that she had some vomiting twice day before yesterday, 3 or 4 times last night, none so far today. She states that she has not been able to keep down fluids or eat secondary to this. She states around the same time that symptoms started she discontinued her Lyrica (unable to get refilled while traveling), and also stopped her omeprazole due to not being covered on insurance. No other medication changes. She states she has not had any urinary symptoms. She states she has had chills, unknown whether any fever at home. She feels thirsty. She denies any upper respiratory symptoms, chest pain, or dyspnea. She has not noted any new extremity swelling. She states that she does feel thirsty. She has not had any new rashes or other new symptoms aside from a little bit of brownish spotting, not sure whether this is vaginal. She denies any possibility of , states on OCP due to heavy menses. She believes that gallstones and kidney stones were found but not felt related to sx Related Data Home Medications Medication Instructions Recorded Confirmed bupropion HCl 150 mg PO BID 05/08/19 05/08/19 cetirizine 10 mg PO DAILY PRN 05/08/19 05/08/19 dextroamphetamine-amphetamine 1 tab PO BID 05/08/19 05/08/19 [Adderall] duloxetine [Cymbalta] 90 mg PO DAILY 05/08/19 05/08/19 levothyroxine 112 mcg PO DAILY 05/08/19 05/08/19 norethindrone-ethin estradiol 1 tab PO DAILY 05/08/19 05/08/19 [Nortrel (21)] pregabalin [Lyrica] 100 mg PO BID 05/08/19 05/08/19 sennosides [senna] 8.6 mg PO BID PRN 05/08/19 05/08/19 Previous Rx's Medication Instructions Recorded diazepam 5 mg tablet 5 mg PO BID PRN #60 tab 03/20/19 methocarbamol 750 mg tablet 750 mg PO QID #90 tab 03/20/19 omeprazole 20 mg tablet,delayed 20 mg PO BID #60 tab 03/20/19 release Allergies Allergy/AdvReac Type Severity Reaction Status Date / Time No Known Drug Allergies Allergy Verified 04/05/19 10:32 Review of Systems Review of Systems ROS Unobtainable: All systems reviewed & are unremarkable except as noted in HPI and below Patient History Medical History (Updated 05/08/19 @ 19:19 by Deja Lopez RN) Anxiety (Chronic ~2013) Depression (Chronic ~1981) Facet arthropathy, lumbosacral (Chronic) Hepatitis C (Chronic ~1988) Herniated disc (Chronic ~2010) Herpes (Chronic ~1989) Post traumatic stress disorder (PTSD) (Chronic ~2010) Substance abuse (Chronic ~1981) Social History household members: family Smoking Status: Former smoker Smoking Status: Former smoker Substance Use Type: does not use Exam Narrative Exam Narrative: GENERAL APPEARANCE: Patient resting, in NAD HEENT: PERRL, EOMI, no scleral icterus, conjunctiva pink NECK: Supple, no masses LUNGS: Clear to auscultation bilaterally. HEART: Rate and rhythm regular, normal S1 and S2, no S3 or S4. ABDOMEN: Soft, bowel sounds present x 4 quadrants, no masses palpable, no hepatosplenomegaly. Moderate generalized lower quadrant tenderness to palpation without guarding or rebound, +sign right CVAT EXTREMITIES: No edema, no cyanosis DERMATOLOGIC: No jaundice or exanthem NEUROLOGIC: Alert and oriented with normal speech and coordination Initial Vital Signs Initial Vital Signs: Vital Signs Temperature 97.2 F L 05/08/19 12:24 Pulse Rate 79 05/08/19 12:24 Respiratory Rate 24 05/08/19 12:24 Blood Pressure 118/102 H 05/08/19 12:24 Pulse Oximetry 97 05/08/19 12:24 Course Course Additional Information: Spoke with radiologist Dr. Shipman who read patient's CT. He advised ovarian cyst appeared simple without other findings. Patient also has some kidney stones as well as spinal stenosis. Reviewed findings with her and advised this could partially account for her pain, ovarian cyst could account for more recent exacerbation of ongoing pain. At that time, we were waiting for patient's urinalysis, as I explained we would want to start antibiotic if concern for infection given her kidney stone. She expressed thanks and was resting comfortably. After urinalysis came back, I went to discuss with her and she was not in the room. She could not be found in the ED. nursing has already called her contact number and left a message for her advised return (see nursing notes). Prior to this I had advised f/u with PCP this week and that additional imaging and eval may be needed and she was agreeable. Orders Ordered: ED Orders 05/08/19 12:37 Complete Blood Count AUTO DIFF Stat Comprehensive Metabolic Panel Stat HCG Quantitative Stat Lipase Stat 05/08/19 13:01 CT abdomen pelvis w con Stat 05/08/19 15:41 Urinalysis and Microscopic Stat Urine Culture Stat Discontinued Medications Sodium Chloride (Normal Saline 0.9%) 1,000 mls @ 150 mls/hr IV CONT EMRE Last Infusion: 05/08/19 16:29 Dose: 0 mls/hr Documented by: Admin: 05/08/19 13:29 Dose: 150 mls/hr Documented by: MARINA Sodium Chloride (Normal Saline 0.9%) 1,000 mls @ 1,000 mls/hr IV BOLUS ONE Stop: 05/08/19 14:38 Last Admin: 05/08/19 17:13 Dose: Not Given Documented by: MEISENNathan Ketorolac Tromethamine (Toradol) 30 mg IV NOW ONE Stop: 05/08/19 13:02 Last Admin: 05/08/19 13:30 Dose: 30 mg Documented by: MARINA Ondansetron HCl (Zofran) 4 mg IV NOW ONE Stop: 05/08/19 13:02 Last Admin: 05/08/19 13:30 Dose: 4 mg Documented by: MARINA Pantoprazole Sodium (Protonix) 40 mg IV NOW ONE Stop: 05/08/19 13:02 Last Admin: 05/08/19 13:30 Dose: 40 mg Documented by: MARINA Vital Signs Vital signs: Vital Signs - 8 hr 05/08/19 12:24 05/08/19 12:43 Temperature 97.2 F L Pulse Rate 79 83 Respiratory Rate 24 22 Blood Pressure 118/102 H Blood Pressure [Left Arm] 120/90 Pulse Oximetry 97 98 MDM - Abdominal Pain Lab Data Attestation: I reviewed the patient's lab results. Result diagrams: 05/08/19 12:37 05/08/19 12:37 Labs: Lab Results 05/08/19 05/08/19 05/08/19 Range/Units 12:37 12:37 12:37 WBC 8.2 (4.5-11.0) X10^3/uL RBC 5.43 H (4.0-5.2) X10^6/uL Hgb 15.6 (12.0-16.0) g/dL Hct 45.7 (36-46) % MCV 84.3 (80-100) fL MCH 28.7 (26-34) PG MCHC 34.1 (30-36) % RDW 13.9 (11.6-14.8) % Plt Count 340 (150-400) X10^3/uL Neut % (Auto) 56.5 (50-75) % Lymph % (Auto) 32.8 (25-40) % Carver % (Auto) 4.7 (3-14) % Eos % (Auto) 5.3 H (2-4) % Baso % (Auto) 0.7 (0-2) % Neut # (Auto) 4600 (8720-2595) /uL Lymph # (Auto) 2700 (3039-9810) /uL Carver # (Auto) 400 (0-900) /uL Eos # (Auto) 400 (0-450) /uL Baso # (Auto) 100 (0-100) /uL Platelet Estimate Adequate on smear Plt Morphology Comment RBC Morphology Normal morphology Sodium 139 (137-145) mmol/L Potassium 4.3 (3.4-5.1) mmol/L Chloride 106 (98-107) mmol/L Carbon Dioxide 26 (22-32) mmol/L BUN 13 (7-17) mg/dL Creatinine 0.70 (0.52-1.04) mg/dL Estimated GFR > 60.0 (>60) mL/min BUN/Creatinine Ratio 18.6 (6-22) Glucose 103 H (70-100) mg/dL Calcium 10.2 (8.4-10.2) mg/dL Total Bilirubin 0.5 (0.2-1.3) mg/dL AST 21 (14-36) IU/L ALT 17 (<35) IU/L Alkaline Phosphatase 78 (38-126) U/L Total Protein 7.5 (6.3-8.2) g/dL Albumin 4.4 (3.5-5.0) g/dL Globulin 3.1 (1.7-4.1) g/dL Albumin/Globulin Ratio 1.4 (1.0-2.8) Lipase 61 (23-300) U/L HCG, Quant < 2.39 mIU/mL Urine Color Urine Appearance Urine pH (4.5-8.0) Ur Specific [employer] (1.000-1.035) Urine Protein (Negative) Urine Glucose (UA) (Negative) g/dL Urine Ketones (NEGATIVE) Urine Occult Blood (Negative) Urine Nitrate (Negative) Urine Bilirubin (NEGATIVE) Urine Urobilinogen (0.2) E.U./dL Ur Leukocyte Esterase (NEGATIVE) Urine RBC (0-5/HPF) Urine WBC (0-5/HPF) Ur Squamous Epith Cells (0-5/HPF) Ur Transition Epith Cell (0-5/HPF) Urine Bacteria (None) Ur Culture Indicated? 05/08/19 Range/Units 15:41 WBC (4.5-11.0) X10^3/uL RBC (4.0-5.2) X10^6/uL Hgb (12.0-16.0) g/dL Hct (36-46) % MCV (80-100) fL MCH (26-34) PG MCHC (30-36) % RDW (11.6-14.8) % Plt Count (150-400) X10^3/uL Neut % (Auto) (50-75) % Lymph % (Auto) (25-40) % Carver % (Auto) (3-14) % Eos % (Auto) (2-4) % Baso % (Auto) (0-2) % Neut # (Auto) (6301-3367) /uL Lymph # (Auto) (3237-8189) /uL Carver # (Auto) (0-900) /uL Eos # (Auto) (0-450) /uL Baso # (Auto) (0-100) /uL Platelet Estimate Plt Morphology Comment RBC Morphology Sodium (137-145) mmol/L Potassium (3.4-5.1) mmol/L Chloride (98-107) mmol/L Carbon Dioxide (22-32) mmol/L BUN (7-17) mg/dL Creatinine (0.52-1.04) mg/dL Estimated GFR (>60) mL/min BUN/Creatinine Ratio (6-22) Glucose (70-100) mg/dL Calcium (8.4-10.2) mg/dL Total Bilirubin (0.2-1.3) mg/dL AST (14-36) IU/L ALT (<35) IU/L Alkaline Phosphatase (38-126) U/L Total Protein (6.3-8.2) g/dL Albumin (3.5-5.0) g/dL Globulin (1.7-4.1) g/dL Albumin/Globulin Ratio (1.0-2.8) Lipase (23-300) U/L HCG, Quant mIU/mL Urine Color Yellow Urine Appearance Clear Urine pH 6.5 (4.5-8.0) Ur Specific [employer] <=1.005 (1.000-1.035) Urine Protein Trace H (Negative) Urine Glucose (UA) Negative (Negative) g/dL Urine Ketones Negative (NEGATIVE) Urine Occult Blood 3+ H (Negative) Urine Nitrate Negative (Negative) Urine Bilirubin Negative (NEGATIVE) Urine Urobilinogen 0.2 (0.2) E.U./dL Ur Leukocyte Esterase Trace H (NEGATIVE) Urine RBC 10-30/hpf H (0-5/HPF) Urine WBC 10-30/hpf H (0-5/HPF) Ur Squamous Epith Cells 1-5 /hpf (0-5/HPF) Ur Transition Epith Cell 1-5/hpf (0-5/HPF) Urine Bacteria Few (2-10) H (None) Ur Culture Indicated? Specimen cultured Imaging Data CT scan - pelvis: Radiologist's impression: Nick Forde R 48 F [address] [address] [address] Scan Report Signed Patient: Nick Forde RMR#: [id number] : 1970Acct:[id number] Age/Sex: 48 / FDate of Service: 05/08/19 Loc: ED Accession Number: [id number] Procedure: CT abdomen pelvis w con Ordering Provider: Harleen Vincent P.A-C PROCEDURE: CT ABDOMEN PELVIS W CON INDICATIONS: LQ, R. flank pain, constipation, vomiting TECHNIQUE: After the administration of intravenous contrast, 5 mm thick sections acquired from the diaphragm to the symphysis. 5 mm coronal and sagittal reformats were acquired. For radiation dose reduction, the following was used: automated exposure control, adjustment of mA and/or kV according to patient size. COMPARISON: None. FINDINGS: Image quality: Excellent. ABDOMEN: Lung bases: Lung bases are clear. Heart size is normal. Solid organs: Liver is normal in size and enhancement. Tiny low-density lesions are consistent with cysts versus hemangiomata. Gallbladder contains multiple gallstones. There is no gallbladder wall thickening or fluid around the gallbladder.. Biliary system is non dilated. Pancreas enhances normally. Spleen is normal in size and enhancement. No adrenal nodules. Kidneys demonstrate normal size and enhancement, without hydronephrosis. Multiple bilateral nonobstructing renal stones. Peritoneum and bowel: Bowel loops demonstrate normal wall thickness and caliber. No free fluid or air. Normal appendix. Moderate right colonic fecal debris. Nodes and vessels: No retroperitoneal or mesenteric adenopathy by size cri teria. Aorta and inferior vena cava are normal in size. Miscellaneous: No ventral hernias. PELVIS: Genitourinary: Bladder wall thickness is normal. Miscellaneous: No inguinal hernias or adenopathy. 3.3 cm right adnexal cyst. Bones: No suspicious bony lesions. No vertebral body compression fractures. Degenerative changes in the lumbar spine with multifactorial whole tenosis at L3-L4 is at least moderate. IMPRESSION: 1. Bilateral nonobstructing renal stones. 2. Normal appendix. 3. 3.3 cm right adnexal cyst. 4. Canal stenosis at L3-L4 incidentally noted. Dictated by: Goldy Shipman M.D. on 05/08/2019 at 15:02 Approved by: Goldy Shipman M.D. on 05/08/2019 at 15:06 Discharge Plan Departure Patient Disposition: Left Against Medical Advice Clinical Impression: Left against medical advice Discharge Date/Time: 05/08/19 16:36 Prescriptions: No Action omeprazole 20 mg tablet,delayed release (DR/EC) 20 mg PO BID Qty: 60 RF: 6 diazepam 5 mg tablet 5 mg PO BID PRN (Reason: muscle spasm) Qty: 60 RF: 0 methocarbamol [Robaxin-750] 750 mg tablet 750 mg PO QID Qty: 90 RF: 3 levothyroxine 112 mcg tablet 112 mcg PO DAILY RF: 0 Nortrel 1/35 (21) 1-35 mg-mcg (21) tablet 1 tab PO DAILY RF: 0 bupropion HCl 150 mg tablet sustained-release 12 hr 150 mg PO BID RF: 0 sennosides [senna] 8.6 mg tablet 8.6 mg PO BID PRN (Reason: Constipation) RF: 0 cetirizine 10 mg tablet 10 mg PO DAILY PRN (Reason: Allergy Symptoms) RF: 0 dextroamphetamine-amphetamine [Adderall] 20 mg tablet 1 tab PO BID RF: 0 duloxetine [Cymbalta] 30 mg capsule,delayed release(DR/EC) 90 mg PO DAILY RF: 0 pregabalin [Lyrica] 50 mg capsule 100 mg PO BID RF: 0 Referrals: Daniel Alejandre MD [Primary Care Provider] - Stand Alone Forms: Against Medical Advice
--- NOTE | 2019-05-08 13:01 | DI.CT.S_ITS ---
PROCEDURE: CT ABDOMEN PELVIS W CON INDICATIONS: LQ, R. flank pain, constipation, vomiting TECHNIQUE: After the administration of intravenous contrast, 5 mm thick sections acquired from the diaphragm to the symphysis. 5 mm coronal and sagittal reformats were acquired. For radiation dose reduction, the following was used: automated exposure control, adjustment of mA and/or kV according to patient size. COMPARISON: None. FINDINGS: Image quality: Excellent. ABDOMEN: Lung bases: Lung bases are clear. Heart size is normal. Solid organs: Liver is normal in size and enhancement. Tiny low-density lesions are consistent with cysts versus hemangiomata. Gallbladder contains multiple gallstones. There is no gallbladder wall thickening or fluid around the gallbladder.. Biliary system is non dilated. Pancreas enhances normally. Spleen is normal in size and enhancement. No adrenal nodules. Kidneys demonstrate normal size and enhancement, without hydronephrosis. Multiple bilateral nonobstructing renal stones. Peritoneum and bowel: Bowel loops demonstrate normal wall thickness and caliber. No free fluid or air. Normal appendix. Moderate right colonic fecal debris. Nodes and vessels: No retroperitoneal or mesenteric adenopathy by size criteria. Aorta and inferior vena cava are normal in size. Miscellaneous: No ventral hernias. PELVIS: Genitourinary: Bladder wall thickness is normal. Miscellaneous: No inguinal hernias or adenopathy. 3.3 cm right adnexal cyst. Bones: No suspicious bony lesions. No vertebral body compression fractures. Degenerative changes in the lumbar spine with multifactorial whole tenosis at L3-L4 is at least moderate. IMPRESSION: 1. Bilateral nonobstructing renal stones. 2. Normal appendix. 3. 3.3 cm right adnexal cyst. 4. Canal stenosis at L3-L4 incidentally noted. Dictated by: Goldy Shipman M.D. on 05/08/2019 at 15:02 Approved by: Goldy Shipman M.D. on 05/08/2019 at 15:06
[2019-05-08] MEDS: SODIUM CHLORIDE 0.9% 1,000 ML 150 ML IV (13:29)
[2019-05-08] MEDS: ONDANSETRON 4 MG/2 ML INJ IV (13:30)
[2019-05-08] MEDS: PANTOPRAZOLE 40 MG VIAL IV (13:30)
[2019-05-08] MEDS: KETOROLAC 60 MG/2 ML VIAL 30 MG IV (13:30)
[2019-05-08 13:36] LABS: Basophils Absolute Auto 100 /uL (0-100); Basophils Percent Auto 0.7 % (0-2); Eosinophils Absolute Auto 400 /uL (0-450); Eosinophils Percent Auto 5.3 % (2-4); Hematocrit 45.7 % (36-46); Hemoglobin 15.6 g/dL (12.0-16.0); Lymphocytes Absolute Auto 2700 /uL (1100-4500); Lymphocytes Percent Auto 32.8 % (25-40); Mean Corpuscular HGB Conc 34.1 % (30-36); Mean Corpuscular Hemoglobin 28.7 PG (26-34); Mean Corpuscular Volume 84.3 fL (80-100); Monocytes Absolute Auto 400 /uL (0-900); Monocytes Percent Auto 4.7 % (3-14); Neutrophils Absolute Auto 4600 /uL (1500-7000); Neutrophils Percent Auto 56.5 % (50-75); Platelet Count 340 X10^3/uL (150-400); Red Blood Cell Count 5.43 X10^6/uL (4.0-5.2); Red Cell Distribution Width 13.9 % (11.6-14.8); White Blood Cell Count 8.2 X10^3/uL (4.5-11.0)
[2019-05-08 13:45] LABS: Alanine Aminotransferase 17 IU/L (<35); Albumin 4.4 g/dL (3.5-5.0); Albumin Globulin Ratio 1.4 (1.0-2.8); Alkaline Phosphatase 78 U/L (38-126); Aspartate Aminotransferase 21 IU/L (14-36); BUN Creatinine Ratio 18.6 (6-22); Bilirubin Total 0.5 mg/dL (0.2-1.3); Blood Urea Nitrogen 13 mg/dL (7-17); Calcium 10.2 mg/dL (8.4-10.2); Carbon Dioxide 26 mmol/L (22-32); Chloride 106 mmol/L (98-107); Estimated Glomerular Filt Rate > 60.0 mL/min (>60); Globulin 3.1 g/dL (1.7-4.1); Glucose 103 mg/dL (70-100); HEMOLYSIS < 15 (0-50); Lipase 61 U/L (23-300); Potassium 4.3 mmol/L (3.4-5.1); Sodium 139 mmol/L (137-145); Total Protein 7.5 g/dL (6.3-8.2)
[2019-05-08 13:51] LABS: Add Manual Diff / Slide Review SLIDE REVIEW
[2019-05-08 14:11] LABS: Platelet Estimate Adequate on smear; RBC Morphology Normal Morphology
[2019-05-08 14:27] LABS: HCG Quantitative /Beta subunit < 2.39 mIU/mL
[2019-05-08 15:44] LABS: Appearance Urine UA CLEAR; Bilirubin Urine UA NEGATIVE (NEGATIVE); Color Urine UA YELLOW; Glucose Urine UA NEGATIVE (Negative); Ketones Urine UA NEGATIVE (NEGATIVE); Leukocyte Esterase Urine UA TRACE (NEGATIVE); Nitrite Urine UA NEGATIVE (Negative); Occult Blood Urine UA 3+ (Negative); Protein Urine UA TRACE (Negative); Specific Gravity Urine UA <=1.005 (1.000-1.035); Urobilinogen Urine UA 0.2 E.U./dL (0.2)
[2019-05-08 16:06] LABS: pH Urine UA 6.5 (4.5-8.0)
[2019-05-08 16:18] LABS: RBC Urine 10-30/HPF (0-5/HPF)
[2019-05-08 16:19] LABS: Bacteria Urine Few (2-10); Culture Indicated Urine Specimen Cultured; Squamous Epithelial Cell Urine 1-5 /HPF (0-5/HPF); Transitional Epi Cells Urine 1-5/HPF (0-5/HPF); WBC Urine 10-30/HPF (0-5/HPF)
--- NOTE | 2019-05-08 16:36 | PC.NURSE ---
called pt and left message. [phone]
== END 2019-05-08 16:36 | disposition left against medical advice (07) ==
PROVIDERS: Emergency Provider Internal Medicine; PCP Family Medicine
DX: R10.9 Unspecified abdominal pain (principal); R11.2 Nausea with vomiting, unspecified
CPT/HCPCS: 36415; 74177; 80053; 81001; 83690; 84702; 85025; 87086; 96361; 96374; 96375; 99284; C9113; J1885; J2405; Q9967

== ENCOUNTER → 2019-05-15 15:12 | Outpatient (CLI) | payer OTHER, MEDICAID, SELFPAY ==
--- NOTE | 2019-05-15 15:13 | DI.US.S_ITS ---
PROCEDURE: US PELVIC COMPLETE INDICATIONS: PELVIC PAIN TECHNIQUE: Real-time scanning was performed of the pelvic organs, with image documentation. Additional endovaginal scanning was necessary due to incomplete visualization of the adnexal and endometrial structures by transabdominal scanning. COMPARISON: [facility], , US PELVIC COMPLETE, 01/17/2018, 11:35. FINDINGS: Transabdominal scanning: Limited scanning through the kidneys shows no hydronephrosis. No pathologic free abdominal or pelvic fluid. Endovaginal scanning: Uterus: Uterus is normal in size at 10.6 x 5.0 x 5.4 cm. The endometrium measures 8.5 mm in combined thickness. Echogenic foci within the endometrium suggests presence of punctate calcifications. Ovaries: The right ovary measures 4.8 x 3.2 x 3.2 cm. There is a 3.8 x 2.7 x 2.8 cm simple cyst. The left ovary is not visualized. IMPRESSION: 1. Simple right ovarian cyst. This is within physiologic limits for size in a premenopausal female. Dictated by: Allie Parisi M.D. on 05/15/2019 at 15:22 Approved by: Allie Parisi M.D. on 05/15/2019 at 15:23
== END ==
PROVIDERS: PCP Family Medicine; Visit Provider Family Medicine
DX: R10.2 Pelvic and perineal pain (principal); N83.291 Other ovarian cyst, right side
CPT/HCPCS: 76830; 76856

== ENCOUNTER → 2019-11-13 09:22 | Outpatient (CLI) | payer OTHER, MEDICAID, SELFPAY | PROVIDERS: PCP Family Medicine; Visit Provider Family Medicine | DX: R30.0 Dysuria (principal); R82.998 Other abnormal findings in urine | CPT/HCPCS: 87086 ==

== ENCOUNTER → 2020-04-22 08:53 | Outpatient (CLI) | payer OTHER, MEDICAID, SELFPAY ==
[2020-04-22 09:55] LABS: Add Manual Diff / Slide Review NO; Basophils Absolute Auto 0 /uL (0-100); Basophils Percent Auto 0.8 % (0-2); Eosinophils Absolute Auto 300 /uL (0-450); Eosinophils Percent Auto 5.2 % (2-4); Hematocrit 41.6 % (36-46); Hemoglobin 13.8 g/dL (12.0-16.0); Lymphocytes Absolute Auto 2100 /uL (1100-4500); Mean Corpuscular HGB Conc 33.1 % (30-36); Mean Corpuscular Volume 84.7 fL (80-100); Monocytes Absolute Auto 300 /uL (0-900); Monocytes Percent Auto 5.9 % (3-14); Neutrophils Absolute Auto 3100 /uL (1500-7000); Neutrophils Percent Auto 52.1 % (50-75); Platelet Count 341 X10^3/uL (150-400); Red Blood Cell Count 4.91 X10^6/uL (4.0-5.2); Red Cell Distribution Width 13.5 % (11.6-14.8); White Blood Cell Count 5.9 X10^3/uL (4.5-11.0)
[2020-04-22 10:15] LABS: Alanine Aminotransferase 14 IU/L (<35); Albumin 4.4 g/dL (3.5-5.0); Albumin Globulin Ratio 1.3 (1.0-2.8); Alkaline Phosphatase 59 U/L (38-126); Aspartate Aminotransferase 24 IU/L (14-36); BUN Creatinine Ratio 16.7 (6-22); Bilirubin Total 0.7 mg/dL (0.2-1.3); Blood Urea Nitrogen 12 mg/dL (7-17); Calcium 9.8 mg/dL (8.4-10.2); Carbon Dioxide 27 mmol/L (22-32); Chloride 106 mmol/L (98-107); Cholesterol 218 mg/dL (140-199); Estimated Glomerular Filt Rate > 60.0 mL/min (>60); Globulin 3.3 g/dL (1.7-4.1); Glucose 104 mg/dL (70-100); HDL Cholesterol 56 mg/dL (40-60); HEMOLYSIS 45 (0-50); LDL Cholesterol Calculated 136 mg/dL (<100); Potassium 4.2 mmol/L (3.4-5.1); Sodium 136 mmol/L (137-145); Total Protein 7.7 g/dL (6.3-8.2); Triglycerides 132 mg/dL (35-150)
[2020-04-22 16:59] LABS: Hep C Virus Ab w/Reflex Quant REACTIVE s/c (NEGATIVE)
== END ==
PROVIDERS: PCP Family Medicine; Referring Provider Family Medicine; Visit Provider Family Medicine
DX: F41.9 Anxiety disorder, unspecified (principal); Z86.19 Personal history of other infectious and parasitic diseases
CPT/HCPCS: 36415; 80053; 80061; 84443; 85025; 86803; 87522

== ENCOUNTER → 2020-07-10 09:05 | Outpatient (CLI) | payer OTHER, MEDICAID, SELFPAY ==
--- NOTE | 2020-07-10 09:06 | DI.RAD.S_ITS ---
PROCEDURE: XR HAND RT MIN 3V INDICATIONS: Right hand pain TECHNIQUE: 3 views of the hand(s) acquired. COMPARISON: None. FINDINGS: Bones: No fractures or dislocations. Carpal bones are normally aligned. No suspicious bony lesions. Normal bone mineralization. No osseous erosions or periarticular osteopenia. Soft tissues: No suspicious soft tissue calcifications. IMPRESSION: Right hand without acute radiographic abnormalities. If there are persistent symptoms or clinical suspicion for pathology, then repeat radiographs or advanced imaging (CT, MRI or bone scan) may be considered for further evaluation. Dictated by: Edmund De Leon M.D. on 07/11/2020 at 13:05 Approved by: Edmund De Leon M.D. on 07/11/2020 at 13:07
[2020-07-10 11:01] LABS: C-Reactive Protein Quant 0.8 mg/dL (<1.0)
[2020-07-10 11:02] LABS: Erythrocyte Sedimentation Rate 1 MM/HR (0-20)
[2020-07-10 11:08] LABS: Free T3, Triiodothyronine Free 3.71 pg/mL (2.77-5.27); Free T4, Direct Thyroxine 0.98 ng/dL (0.78-2.19)
[2020-07-10 11:21] LABS: Thyroid Stimulating Hormone 1.56 uIU/mL (0.47-4.68)
[2020-07-11 14:45] LABS: ANA Screen, IFA Negative (.)
[2020-07-16 19:57] LABS: Vitamin D 25 Hydroxy (D3) 50.8 ng/mL (30.0-100.0)
== END ==
PROVIDERS: PCP Family Medicine; Referring Provider Family Medicine; Visit Provider Family Medicine
DX: M79.644 Pain in right finger(s) (principal); E07.9 Disorder of thyroid, unspecified; G89.4 Chronic pain syndrome
CPT/HCPCS: 36415; 73130; 82306; 84439; 84443; 84481; 85651; 86038; 86140

== ENCOUNTER → 2021-05-14 14:40 | Outpatient (CLI) | payer OTHER, MEDICAID, SELFPAY ==
--- NOTE | 2021-05-14 14:44 | DI.RAD.S_ITS ---
PROCEDURE: XR LUMBAR SPINE MIN 4V INDICATIONS: lower back pain TECHNIQUE: 5 views of the lumbar spine acquired, including flexion and extension views. COMPARISON: [facility], , L-SPINE 2-3 VIEWS, 01/18/2017, 15:52. FINDINGS: Bones: 5 nonrib-bearing vertebrae are present. Mild levoscoliosis centered at the L3 level. Posterior/interbody fusion at the L3-L4 level with intact fixation hardware and intervertebral disc spacer. Multilevel disc degeneration, severe at the L5-S1 level. Moderate L4-L5 and L5-S1 facet joint arthropathy.. No vertebral body compression fractures. No suspicious bony lesions. Soft tissues: Overlying bowel gas pattern is normal. No suspicious soft tissue calcifications. IMPRESSION: 1. Prior posterior/interbody fusion L3-L4. 2. Multilevel spondylosis similar to prior examination. Dictated by: Dave Bernal [facility] Interpreted: Daron Clark MD on 05/14/2021 at 15:05 Transcribed by: ADI on 05/14/2021 at 15:07 Approved by: Daron Clark M.D. on 05/14/2021 at 15:35
[2021-05-14 15:25] LABS: Appearance Urine UA SL CLOUDY; Bilirubin Urine UA NEGATIVE (NEGATIVE); Color Urine UA YELLOW; Glucose Urine UA NEGATIVE (Negative); Ketones Urine UA NEGATIVE (NEGATIVE); Leukocyte Esterase Urine UA 1+ (NEGATIVE); Nitrite Urine UA NEGATIVE (Negative); Occult Blood Urine UA 1+ (Negative); Protein Urine UA NEGATIVE (Negative); Specific Gravity Urine UA 1.025 (1.000-1.035); Urobilinogen Urine UA 0.2 E.U./dL (0.2)
[2021-05-14 15:55] LABS: RBC Urine 1-5/HPF (0-5/HPF); Squamous Epithelial Cell Urine 1-5 /HPF (0-5/HPF); WBC Urine 30-100/HPF (0-5/HPF)
[2021-05-14 15:56] LABS: Bacteria Urine Moderate (10-30); Culture Indicated Urine Specimen Cultured
== END ==
PROVIDERS: PCP Family Medicine; Referring Provider Obstetrics & Gynecology; Visit Provider Obstetrics & Gynecology
DX: M47.26 Other spondylosis with radiculopathy, lumbar region (principal); M51.17 Intervertebral disc disorders with radiculopathy, lumbosacral region; M51.16 Intervertebral disc disorders with radiculopathy, lumbar region; M96.1 Postlaminectomy syndrome, not elsewhere classified; R35.0 Frequency of micturition; M47.27 Other spondylosis with radiculopathy, lumbosacral region; M54.50 Low back pain, unspecified; G89.29 Other chronic pain; Z98.1 Arthrodesis status
CPT/HCPCS: 72110; 81001; 87077; 87086; 87186

== ENCOUNTER → 2021-06-04 12:42 | Outpatient (CLI) | payer OTHER, MEDICAID, SELFPAY ==
[2021-06-04 13:22] LABS: Appearance Urine UA SL CLOUDY; Bilirubin Urine UA NEGATIVE (NEGATIVE); Color Urine UA YELLOW; Glucose Urine UA NEGATIVE (Negative); Ketones Urine UA NEGATIVE (NEGATIVE); Leukocyte Esterase Urine UA 2+ (NEGATIVE); Nitrite Urine UA NEGATIVE (Negative); Occult Blood Urine UA TRACE-INTACT (Negative); Protein Urine UA NEGATIVE (Negative); Urobilinogen Urine UA 0.2 E.U./dL (0.2)
[2021-06-04 13:25] LABS: pH Urine UA 5.5 (4.5-8.0)
[2021-06-04 13:38] LABS: Bacteria Urine Few (2-10); Culture Indicated Urine Cult Not Indicated; RBC Urine 1-5/HPF (0-5/HPF); Squamous Epithelial Cell Urine 5-10 /HPF (0-5/HPF); WBC Urine 5-10/HPF (0-5/HPF)
== END ==
PROVIDERS: PCP Family Medicine; Referring Provider Obstetrics & Gynecology; Visit Provider Obstetrics & Gynecology
DX: R35.0 Frequency of micturition (principal); R39.9 Unspecified symptoms and signs involving the genitourinary system; N39.0 Urinary tract infection, site not specified
CPT/HCPCS: 81003; 81015; 87086

== ENCOUNTER → 2021-07-08 15:18 | Outpatient (CLI) | payer OTHER, MEDICAID, SELFPAY ==
[2021-07-08 16:19] LABS: COVID19 -Nasal RAPID Negative (Negative)
== END ==
PROVIDERS: PCP Family Medicine; Visit Provider Obstetrics & Gynecology
DX: Z01.812 Encounter for preprocedural laboratory examination; Z20.822 Contact with and (suspected) exposure to COVID-19
CPT/HCPCS: 87635; C9803

== ENCOUNTER → 2021-07-09 12:37 | Day surgery (SDC) | payer OTHER, MEDICAID, SELFPAY ==
[2021-06-26 11:37] VITALS: BMI 34.7
[2021-07-09] MEDS: LACTATED RINGERS 1,000 ML 84 ML IV (13:07)
[2021-07-09 13:09] VITALS: BP 139/85; PULSE 89; RESP 16; TEMP 37.1; O2SAT 98; BMI 34.7
--- NOTE | 2021-07-09 13:34 | PM.PREOP ---
Pre-operative Note COVID-19 COVID-19 status: Negative Result date/Date tested (Pos, Neg/Pending): 07/08/21 Criteria for continued procedure: Expected advancement of disease process Interval Note History & Physical reviewed/Exam performed by Physician: Yes Changes to H&P: No
--- NOTE | 2021-07-09 14:40 | SUR.PREOP ---
pt's surgery delayed for at least [address] Owens speaks to pt and she decides to reschedule. Left at 1440
== END ==
PROVIDERS: PCP Family Medicine; Referring Provider Obstetrics & Gynecology; Visit Provider Obstetrics & Gynecology
DX: Z53.09 Procedure and treatment not carried out because of other contraindication (principal)
CPT/HCPCS: 57522; J2250; J2704; J3010

== ENCOUNTER → 2021-08-05 14:36 | Outpatient (CLI) | payer OTHER, MEDICAID, SELFPAY ==
[2021-08-05 15:10] LABS: COVID19 -Nasal RAPID Negative (Negative)
== END ==
PROVIDERS: PCP Family Medicine; Visit Provider Obstetrics & Gynecology
DX: Z20.822 Contact with and (suspected) exposure to COVID-19 (principal); Z01.812 Encounter for preprocedural laboratory examination
CPT/HCPCS: 87635; C9803

== ENCOUNTER 2021-08-06 12:29 | Day surgery (SDC) | payer OTHER, MEDICAID, SELFPAY ==
[2021-08-05 09:39] VITALS: BMI 34.7
--- NOTE | 2021-08-06 | PATH_ITS ---
[facility] Accession Number: [id number] No. of containers..02 Tissue . 01 Material submitted: . PART A: cervix - LEEP, CONE BIOPSY @ 12:00 PART B: endocervix - ENDOCERVICAL CURETTING . 02 Diagnosis: A. 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 Inked margins are negative for neoplasm. No evidence of invasive carcinoma. . B. Endocervix, Curetting: Scant endocervical epithelium in a background of mucus. No evidence of neoplasia. [facility] 08/13/2021 0834 Local . 02 Electronically signed: . Myesha Dahl MD, Pathologist NPI- [id number] . 01 Gross description: . A. Received in formalin, labeled with the patient's name and additionally labeled LEEP cone biopsy at 12 o'clock is an irregular, partially disrupted portion of cervix measuring 1.5 x 1.3 cm excised to a depth of 0.8 cm. No suture or other marking is identified. Thus, the disrupted edge of the specimen is arbitrarily designated 12 o'clock. Also present is an aggregate of carlson mucoid material and tissue fragments measuring 1.3 x 0.5 x 0.1 cm. The main specimen is inked as follows: endocervical margin orange, deep/peripheral margin blue. The mucosal surface is carlson, smooth and glistening with no masses or lesions identified. The specimen is entirely submitted as follows: . A1: 9-12 o'clock. A2: 12-3 o'clock. A3: 6-9 o'clock. A4: 3-6 o'clock. A5: Additional mucoid material, wrapped. . B. Received in a scant amount of formalin, labeled with the patient's name and additionally labeled endocervical curetting is an irregular portion of carlson-brown mucoid and hemorrhagic material measuring 1.0 x 0.7 x 0.3 cm. The specimen is wrapped and entirely submitted in cassette B1. ([id number]) /MRV 08/09/2021 1620 Local . 02 Pathologist provided ICD-10: N87.0 . 02 CPT . 700755, [id number] Specimen Comment: A courtesy copy of this report has been sent to [phone] Performed at: 01 [facility] [address] [place] [address], [place], [place] [id number] MD Epifanio Slaughter MD Phone: [phone] Performed at: 02 [facility] [address] [place] [id number] MD Myesha Dahl MD Phone: [phone]
[2021-08-06 12:52] VITALS: BP 125/77; PULSE 85; RESP 15; TEMP 36.6; O2SAT 97; BMI 34.7
[2021-08-06] MEDS: LACTATED RINGERS 1,000 ML 42 ML IV (13:00)
--- NOTE | 2021-08-06 13:38 | PM.PREOP ---
Pre-operative Note COVID-19 COVID-19 status: Negative Result date/Date tested (Pos, Neg/Pending): 08/06/21 Criteria for continued procedure: Non-surgical alternatives not available or appropriate per current SOC Interval Note History & Physical reviewed/Exam performed by Physician: Yes Changes to H&P: No
--- NOTE | 2021-08-06 13:39 | PM.GYNOP.1 ---
Operative Date/Time/Diagnoses Date of procedure: 08/06/21 Time of procedure: 14:10 Pre-op diagnosis: High Grade Squamous Intraepithelial Lesion (HGSIL) Post-op diagnosis: same Procedure & Clinicians Procedure: Procedures Operation Date: 08/06/21 13:30 LOOP ELECTRICAL EXCISION PROCEDURE (LEEP) Indications: Nick is a 51-year-old with a history of HGSIL on cervical biopsy who is scheduled for loop electrosurgical excision procedure (LEEP) scheduled for the main OR of [facility] on 07/09/2021.? She presents today for her scheduled surgery. Surgeon: Umberto Owens Anesthesia Type: General Operative Notes Findings: Minimal AWE changes at transformation zone. Closure Type: not applicable Specimen(s): other (LEEP Cone biopsy, cut at 12:00; Endocervical curettings) Estimated blood loss (mL): 15 Blood products transfused: none Procedure in detail: With the patient under satisfactory general anesthesia in the modified dorsal lithotomy position, the perineum vagina and lower abdomen were prepped and draped in the usual manner for LEEP cone. A pre-surgical safety time-out was then taken in accordance with [facility] OR protocols. A LEEP speculum was then placed in the vagina and suction attached. The cervix was easily visualized and soaked with vinegar solution. Minimal aceto-white epithelium was noted at the transformation zone and a 20 x 10 mm LEEP electrode with 50 w pure cut was used to excise the LEEP cone in the usual manner. The specimen was cut at 12:00 p.m. and submitted in formalin for pathologic analysis. Endocervical curettage was then accomplished with a cup or can box curette and a 2nd pathologic specimen, endocervical curettings, was similarly submitted. A ball electrode was used to coagulate the LEEP bed with a 50 w coagulation setting and at the end of that process hemostasis of the cone bed was complete. The speculum was then removed from the vagina, the patient awakened, and the patient transferred to the PACU for a period of observation and recovery having tolerated procedure well. Complications: none Post-operative Condition: stable Disposition: PACU Plan for aftercare: Routine post-op care and follow-up in two weeks.
--- NOTE | 2021-08-06 13:56 | PM.GYNHP.1 ---
History of Present Illness History of Present Illness Reason for admission: other (HGSIL) Narrative: Nick is a 51-year-old with a history of HGSIL on cervical biopsy who is scheduled for loop electrosurgical excision procedure (LEEP) scheduled [facility] the [facility] on 07/09/2021.? She presents today for her scheduled surgery. [facility] Medical History Abnormal Pap smear of cervix Anxiety (~2013) Cervical cancer screening Chronic pain syndrome Chronic sinusitis Depression (~1981) Facet arthropathy, lumbosacral Hepatitis C (~1988) Herniated disc (~2010) Herpes (~1989) Post traumatic stress disorder (PTSD) (~2010) Screening for breast cancer Screening for HPV (human papillomavirus) Sinusitis Substance abuse (~1981) Surgical History History of laminectomy Family History Father Heart disease Social History household members: family Smoking Status: Former smoker alcohol intake: current Meds Home Medications and Allergies Home Medications Medication Instructions Recorded Confirmed Type acyclovir 200 mg capsule 200 mg PO TID PRN #30 cap 05/28/20 08/05/21 Rx albuterol sulfate 90 mcg/actuation 2 puff INHALATION Q6H PRN #18 g 05/28/20 08/05/21 Rx aerosol inhaler bupropion HCl 150 mg tablet,12 hr 150 mg PO BID #180 each 02/02/21 08/06/21 Rx sustained-release norethindrone 1 mg-ethinyl 1 tab PO DAILY #84 tab 02/02/21 08/06/21 Rx estradiol 35 mcg (21) tablet (Nortrel) cetirizine 10 mg tablet 10 mg PO DAILY PRN #90 tab 04/29/21 08/06/21 Rx Parking Permit... #1 ea 06/23/21 06/23/21 Rx dextroamphetamine-amphetamine 20 20 mg PO BID #60 tab 07/21/21 08/06/21 Rx mg tablet (Adderall) oxycodone 5 mg tablet 5 mg PO Q8H PRN #90 tab 07/21/21 08/06/21 Rx methocarbamol 750 mg tablet See Rx Instructions .ROUTE 07/27/21 08/06/21 Rx .COMPLEX #360 tab Allergies Allergy/AdvReac Type Severity Reaction Status Date / Time No Known Drug Allergies Allergy Verified 07/09/21 12:57 Exam Vital Signs (past 8 hours): - 08/06/21 12:52 Temperature 97.9 F Pulse Rate 85 Respiratory Rate 15 Blood Pressure 125/77 Pulse Oximetry 97 Oxygen Delivery Method Room Air Const General: cooperative and comfortable Nutritional Appearance: average body habitus Orientation: alert and oriented x3 HENMT Head: normal to inspection, normocephalic and atraumatic Ears: hearing grossly normal bilaterally Face and sinus: face symmetric Eyes General: appearance normal, both eyes and all related structures Conjunctivae: conjunctivae normal Sclera: sclerae normal EOM: EOM intact bilaterally Neck Neck: normal visual inspection Thyroid: thyroid normal Resp Effort & Inspection: normal respiratory effort and able to speak in complete sentences Auscultation: clear to auscultation bilaterally Cardio Rate: regular rate Rhythm: regular rhythm Heart Sounds: S1 normal, S2 normal and no murmurs GI Inspection: normal to inspection Palpation: soft, no hepatosplenomegaly and No tender External Female Exam: normal external appearance and normal appearance of the urethra Speculum Exam - Vagina: normal appearance of the vagina and normal vaginal discharge Speculum Exam - Cervix: normal appearance of the cervix and other (See colpo note) Bimanual Exam- Vagina & Uterus: normal bimanual exam, uterine size normal, uterine shape normal and non-tender Bimanual Exam- Adnexa, other: normal adnexae, no masses and apex supported Skin General: no rashes or lesions noted Psych Appearance: grossly normal Mental Status: mental status grossly normal Speech and Movement: speech and movement normal Mood: congruent mood Affect: normal affect Attitude: cooperative Thought Process: normal Thought Content: normal Judgment: judgment good Assessment & Plan Assessment and plan (1) HGSIL (high grade squamous intraepithelial dysplasia): Status: Acute Plan Patient counseled regarding alternatives, risks, benefits, and potential complications associated with loop electrosurgical excision procedure (LEEP).? With full understanding of the above, a written consent was executed, signed, and witnessed this date. COVID-19 COVID-19 status: Negative Result date/Date tested (Pos, Neg/Pending): 08/05/21 Time Spent With Patient Time with patient: less than 30 minutes Critical Care time: I spent a total of [] minutes of critical care time on this patient's care today; this time is exclusive of procedural time.
--- NOTE | 2021-08-06 14:19 | SUR.OPER ---
Lithotomy on padded OR bed, head on pillow, arms secured on padded arm boards at <90 degrees abduction. Legs secured in padded yellow fins stirrups.
[2021-08-06] MEDS: ACETIC ACID 500 ML IRRIG 20 ML TOP (14:23)
[2021-08-06 15:17] VITALS: BP 116/72; PULSE 68; RESP 16; TEMP 36.7; O2SAT 98
== END 2021-08-06 15:17 | disposition home or self-care (01) ==
PROVIDERS: PCP Family Medicine; Referring Provider Obstetrics & Gynecology; Visit Provider Obstetrics & Gynecology
PROC: 0UBC7ZZ Excision of Cervix, Via Natural or Artificial Opening (ICD-10-PCS; CPT 57522; principal; 2021-08-06 13:30)
DX: N87.0 Mild cervical dysplasia (principal); J45.909 Unspecified asthma, uncomplicated; B00.9 Herpesviral infection, unspecified
CPT/HCPCS: 57522

== ENCOUNTER → 2021-08-14 12:13 | Outpatient (CLI) | payer OTHER, MEDICAID, SELFPAY ==
--- NOTE | 2021-08-14 12:22 | DI.CT.S_ITS ---
PROCEDURE: CT SINUS SCREEN WO CON INDICATIONS: Chronic pansinusitis TECHNIQUE: Noncontrast 3.0 mm axial images acquired from the frontal sinuses to the mid-sella, with coronal and sagittal reformats. For radiation dose reduction, the following was used: automated exposure control, adjustment of mA and/or kV according to patient size. COMPARISON: [facility], CT, SINUS WITHOUT CONTRAST, 12/22/2010, 9:09. FINDINGS: Image quality: Excellent. Maxillary Sinuses: The medial abreu of the maxillary sinuses have been removed. Mild mucosal thickening is seen within the inferior maxillary sinuses, left worse than right. Ethmoid Air Cells: Portions of the ethmoid air cell septations have been removed. Minimal to mild mucosal thickening is seen within the ethmoid air cells. Sphenoid Sinuses: No bony remodeling or destruction. Sinuses are clear. Frontal Sinuses: No bony remodeling or destruction. Sinuses are clear. The frontal sinuses are poorly developed. Ostiomeatal Complexes: Removed. Miscellaneous: Visualized intra-orbital contents are normal. No eryn bullosa or paradoxical turbinate curvature. There is [id number] leftward nasal septal deviation. IMPRESSION: Prior postoperative change, with bilateral antrectomy. Mild ethmoid and maxillary sinus disease can be seen. The paranasal sinus disease is improved compared to the preoperative CT dated 12/22/2010. Dictated by: Avi Garcia M.D. on 08/14/2021 at 12:00 Approved by: Avi Garcia M.D. on 08/14/2021 at 12:02
== END ==
PROVIDERS: PCP Family Medicine; Referring Provider Otolaryngology; Visit Provider Otolaryngology
DX: J32.4 Chronic pansinusitis (principal); G44.89 Other headache syndrome
CPT/HCPCS: 70486

== ENCOUNTER → 2021-10-31 11:29 | Outpatient (CLI) | payer OTHER, MEDICAID, SELFPAY ==
--- NOTE | 2021-10-31 11:31 | DI.RAD.S_ITS ---
PROCEDURE: XR CHEST 2V INDICATIONS: cough TECHNIQUE: 2 views of the chest were acquired. COMPARISON: [facility], , CHEST 2 VIEW, 11/27/2014, 11:07. [facility], , XR CHEST 2V, 05/29/2018, 14:57. FINDINGS: Surgical changes and devices: Cervical spine fixation hardware is seen. Lungs and pleura: Lungs are clear. No pleural effusions or pneumothorax. There is again seen elevation of the left hemidiaphragm. Mediastinum: Mediastinal contours are normal. Heart size is normal. Bones and chest wall: No suspicious bony abnormalities. Age-appropriate bony degenerative changes are seen. Soft tissues appear unremarkable. IMPRESSION: No focal infiltrates are seen. Elevation of the left hemidiaphragm is seen. If there is strong clinical concern for paralysis of this hemidiaphragm, please consider a dedicated, scheduled fluoroscopic sniff test for further evaluation. Postoperative and degenerative changes are seen. Dictated by: Avi Garcia M.D. on 10/31/2021 at 10:50 Approved by: Avi Garcia M.D. on 10/31/2021 at 10:51
== END ==
PROVIDERS: PCP Family Medicine; Referring Provider Physician Assistant; Visit Provider Physician Assistant
DX: R05.9 Cough, unspecified (principal)
CPT/HCPCS: 71046

== ENCOUNTER → 2021-11-25 07:04 | Outpatient (CLI) | payer OTHER, MEDICAID, SELFPAY | PROVIDERS: PCP Family Medicine; Referring Provider Physical Medicine & Rehabilitation; Visit Provider Physical Medicine & Rehabilitation | DX: M47.816 Spondylosis without myelopathy or radiculopathy, lumbar region (principal); M43.26 Fusion of spine, lumbar region; Z53.20 Procedure and treatment not carried out because of patient's decision for unspecified reasons ==

== ENCOUNTER → 2021-12-07 16:02 | Outpatient (CLI) | payer MEDICARE, MEDICAID, SELFPAY ==
--- NOTE | 2021-12-07 16:05 | DI.MRI.S_ITS ---
PROCEDURE: MR LUMBAR SPINE WO CON INDICATIONS: LBP LUMBAR FUSION TECHNIQUE: Noncontrast sagittal T1 spin echo and T2 fast echo, sagittal STIR, and T2 fast spin echo through the lumbar spine. In cases with scoliosis, additional coronal T2 fast spin echo may be performed. COMPARISON: [facility], MR, MR LUMBAR SPINE WO CON, 10/27/2018, 16:10. FINDINGS: Image quality: Excellent. Alignment and Curvature: There is normal bony alignment. Patient is status post interval posterior fusion and discectomy at L3-4. Bone Marrow: Marrow is of normal overall signal. No acute vertebral body compression fractures. Spinal Cord: Conus medullaris terminates at the L1 level. Visualized cord demonstrates normal signal and size. Paraspinous Soft Tissues: No paravertebral masses. T12-L1: Moderate disc desiccation and height loss. Broad-based disc bulge. Mild facet ligamentum flavum hypertrophy. Mild left neural foraminal stenosis. No right neural foraminal narrowing. Findings are unchanged from the study dated October 27, 2018. L1-L2: Severe disc desiccation and height loss. Broad-based disc bulge. There is a left lateral disc protrusion or extrusion which measures 0.6 x 0.7 x 0.6 cm (series 5/image 13 and series 2/image 9. There is rightward displacement of the thecal sac and narrowing of the left lateral recess. Findings of increased in severity when compared with the prior study. Mild left foraminal stenosis. No right neural foraminal narrowing. L2-L3: Severe disc desiccation and height loss. Broad-based disc bulge. Severe facet ligamentum flavum hypertrophy. There is narrowing of the right lateral recess. No canal stenosis. There is moderate bilateral foraminal stenosis. The degree of foraminal narrowing is increased bilaterally when compared with the 2019 study. L3-L4: Interval posterior fusion and discectomy when compared with the prior study. No canal stenosis. Moderate bilateral neural foraminal stenosis. The degree of neural foraminal narrowing is decreased when compared with the prior study. Flattening of the exiting nerve roots is no longer visualized. L4-L5: Moderate disc desiccation and height loss. Severe facet ligamentum flavum hypertrophy. No canal stenosis. There is severe bilateral neural foraminal stenosis with mild flattening of the bilateral exiting nerve roots. These findings are similar in extent to the 2019 study. L5-S1: Severe disc desiccation and height loss. Mild disc bulge. Severe facet sclerosis. No canal stenosis. No foraminal stenosis. IMPRESSION: 1. Increased size of a left lateral disc protrusion versus extrusion at L1-2 with narrowing of the left lateral recess when compared with the study dated October 27, 2018. 2. Increased foraminal stenosis at L2-3 when compared with the prior study now moderate in degree. 3. Decreased neural foraminal stenosis at L3-4 status post posterior fixation and discectomy. 4. Severe bilateral foraminal stenosis with flattening of the exiting nerve roots at L4-5 as before. Dictated by: Allie Parisi M.D. on 12/08/2021 at 9:50 Approved by: Allie Parisi M.D. on 12/08/2021 at 10:17
== END ==
PROVIDERS: PCP Family Medicine; Referring Provider Physical Medicine & Rehabilitation; Visit Provider Physical Medicine & Rehabilitation
DX: M47.816 Spondylosis without myelopathy or radiculopathy, lumbar region (principal); M48.061 Spinal stenosis, lumbar region without neurogenic claudication; M51.26 Other intervertebral disc displacement, lumbar region; Z98.1 Arthrodesis status
CPT/HCPCS: 72148

== ENCOUNTER 2022-03-02 10:00 | Outpatient (CLI) | payer MEDICARE, MEDICAID, SELFPAY ==
[2022-03-02] VITALS (9 sets, daily range): BP systolic 113–129; BP diastolic 62–75; PULSE 75–89; RESP 16–20; TEMP 37.1; O2SAT 97–100
--- NOTE | 2022-03-02 10:01 | DI.RAD.S_ITS ---
PROCEDURE: PAIN L/S FACET INJ/BLK 1ST ELIANA COMPARISON: [facility], MR, MR LUMBAR SPINE WO CON, 12/07/2021, 16:29. INDICATIONS: SPONDYLOSIS FINDINGS: Fluoroscopic spot filming was performed to verify placement of spinal needles on both sides at the L4, L5, and S1 levels, as labeled on the films. Appropriate location of the needle tips was confirmed by injection of iodinated contrast. IMPRESSION: Intraprocedural examination demonstrating appropriate positions of the needles. Dictated by: Avi Garcia M.D. on 03/02/2022 at 12:02 Approved by: Avi Garcia M.D. on 03/02/2022 at 12:02
[2022-03-02] MEDS: MIDAZOLAM 5 MG/5 ML VIAL IV (11:56)
[2022-03-02] MEDS: BUPIVACAINE 0.5% (PF) VIAL 5 ML INJ (11:57)
[2022-03-02] MEDS: IOPAMIDOL 15 ML VIAL 3 ML INJ (11:57)
[2022-03-02] MEDS: LIDOCAINE 1% (PF) 5 ML INJ (11:58)
--- NOTE | 2022-03-02 12:12 | PM.PROC.IR.1 ---
Date/Time/Diagnoses Date of procedure: 03/02/22 Time of procedure: 12:12 Pre-procedure diagnosis: 1. FACET ARTHROPATHY Post-procedure diagnosis: same Procedure Notes Procedure: 1. BILATERAL- L4, L5 and S1 DIAGNOSTIC MB BLOCKS with LA Anesthetic Indications: Nick is referred by Dr. Dumont for treatment of Bilateral Axial LBP. Physician: Harrison Martin Total Fluoroscopy time (seconds): 16 Total sedation minutes: 17 Complications: none Procedure in detail & Post-procedure care: DESCRIPTION OF PROCEDURE Fluoroscopically guided, contrast-controlled bilateral L4, L5 and S1 medial branch blocks with 0.5cc of 0.5% Marcaine. Following review of allergy and review of potential side effects and complications, including, but not necessarily limited to, infection, allergic reaction, local tissue breakdown, nerve injury, paralysis, stroke and possible , the patient indicated that the patient understood and agreed to proceed. An informed consent document was signed by the patient, witnessed by a nurse, and placed in the patient's chart. After review of previous anaesthesic history and IV conscious sedation the patient was deemed safe to proceed with today's procedure with IV conscious sedation as ASA class II designation. Safety time-out was performed to confirm patient ID, procedure to be performed and site of procedure. IV sedation was accomplished with a combination of 5mg of Versed was administered by the RN after DO order, titrated to patient comfort during the course of the procedure while the patient remained responsive to all verbal commands In the prone position, following sterile prep and drape of the lumbar region, the right L4, L5 and S1 anatomical location of the medial branch of the dorsal ramus was identified fluoroscopically. Subsequently an anesthetic skin wheal using 1% lidocaine solution was initiated at each of the anatomical spots. Subsequently then a 22-gauge 3.5-inch spinal needle was atraumatically introduced and advanced under fluoroscopic guidance at each of the corresponding sites at the right L4, L5 and S1 MB. After negative aspiration, 0.2cc of Isovue 200 was injected, confirming placement without vascular or intrathecal uptake. Subsequently then 0.5cc of 0.5% Marcaine solution was injected at each of the corresponding sites at the right L4, L5 and S1 medial branch locations. The identical procedure was replicated on the left. The patient tolerated the procedure well without signs or symptoms of complications prior to transfer to the recovery area continued monitoring without incident. Post-procedure, the patient was monitored initiating provocative activities to measure the amount of relief from block of the facetogenic pain. The patient reported a VAS of 7 prior to the procedure and a post-procedure VAS of 1. It has been a pleasure to assist in the diagnostic and therapeutic care of your patient. POST OP INSTRUCTIONS The patient was provided with a Pain Log to complete over the next several hours and subsequent days prior to the patient's follow up with the ordering physician. If the patient has detail manager relief to the solution applied, then they may be a candidate for medial branch rhizotomy. The patient is aware, was provided, once again, with a Pain Log and will follow up with the referring physician for review and clinical correlation
== END 2022-03-02 12:29 | disposition home or self-care (01) ==
LOC: RAD 10:01
PROVIDERS: PCP Family Medicine; Referring Provider Physical Medicine & Rehabilitation; Visit Provider Physical Medicine & Rehabilitation
DX: M47.816 Spondylosis without myelopathy or radiculopathy, lumbar region (principal); M47.817 Spondylosis without myelopathy or radiculopathy, lumbosacral region
CPT/HCPCS: 64493; 64494; 99152; J2250

== ENCOUNTER → 2022-06-22 10:47 | Outpatient (CLI) | payer MEDICARE, MEDICAID, SELFPAY ==
--- NOTE | 2022-06-22 10:50 | DI.RAD.S_ITS ---
PROCEDURE: XR CHEST 2V INDICATIONS: chronic cough TECHNIQUE: 2 views of the chest were acquired. COMPARISON: [facility], CR, XR CHEST 2V, 10/31/2021, 11:18. FINDINGS: Surgical changes and devices: Lower cervical spine plate and screw instrumentation Lungs and pleura: Lungs are clear. No pleural effusions or pneumothorax. Elevation left hemidiaphragm is unchanged from the prior Mediastinum: Mediastinal contours are normal. Heart size is normal. Bones and chest wall: No suspicious bony abnormalities. Soft tissues appear unremarkable. IMPRESSION: No acute cardiopulmonary findings Approved by: Geoffrey Vallejo M.D. on 06/22/2022 at 14:13
[2022-06-22 11:38] LABS: Add Manual Diff / Slide Review NO; Basophils Absolute Auto 100 /uL (0-100); Eosinophils Absolute Auto 400 /uL (0-450); Eosinophils Percent Auto 7.4 % (2-4); Hematocrit 39.1 % (36-46); Lymphocytes Absolute Auto 1700 /uL (1100-4500); Lymphocytes Percent Auto 28.7 % (25-40); Mean Corpuscular HGB Conc 33.1 % (30-36); Mean Corpuscular Hemoglobin 27.4 PG (26-34); Mean Corpuscular Volume 82.8 fL (80-100); Monocytes Absolute Auto 300 /uL (0-900); Monocytes Percent Auto 5.5 % (3-14); Neutrophils Absolute Auto 3400 /uL (1500-7000); Neutrophils Percent Auto 57.4 % (50-75); Platelet Count 288 X10^3/uL (150-400); Red Blood Cell Count 4.72 X10^6/uL (4.0-5.2); Red Cell Distribution Width 13.4 % (11.6-14.8); White Blood Cell Count 5.9 X10^3/uL (4.5-11.0)
[2022-06-22 11:53] LABS: Alanine Aminotransferase 27 IU/L (<35); Albumin 4.3 g/dL (3.5-5.0); Albumin Globulin Ratio 1.5 (1.0-2.8); Alkaline Phosphatase 75 U/L (38-126); Aspartate Aminotransferase 29 IU/L (14-36); BUN Creatinine Ratio 21.6 (6-22); Bilirubin Total 0.4 mg/dL (0.2-1.3); Blood Urea Nitrogen 16 mg/dL (7-17); Carbon Dioxide 28 mmol/L (22-32); Chloride 101 mmol/L (98-107); Cholesterol 182 mg/dL (140-199); Estimated Glomerular Filt Rate > 60 mL/min (>60); Globulin 2.9 g/dL (1.7-4.1); Glucose 95 mg/dL (70-100); HDL Cholesterol 60 mg/dL (40-60); HEMOLYSIS < 15 (0-50); LDL Cholesterol Calculated 95 mg/dL (<100); Potassium 4.1 mmol/L (3.4-5.1); Sodium 137 mmol/L (137-145); Total Protein 7.2 g/dL (6.3-8.2); Triglycerides 136 mg/dL (35-150)
[2022-06-22 12:00] LABS: Appearance Urine UA CLEAR; Bilirubin Urine UA NEGATIVE (NEGATIVE); Color Urine UA YELLOW; Glucose Urine UA NEGATIVE (Negative); Ketones Urine UA NEGATIVE (NEGATIVE); Leukocyte Esterase Urine UA 3+ (NEGATIVE); Nitrite Urine UA NEGATIVE (Negative); Occult Blood Urine UA TRACE-INTACT (Negative); Protein Urine UA NEGATIVE (Negative); Specific Gravity Urine UA 1.015 (1.000-1.035); Urobilinogen Urine UA 0.2 E.U./dL (0.2)
[2022-06-22 12:08] LABS: Bacteria Urine Few (2-10); Culture Indicated Urine Specimen Cultured; RBC Urine 0-1/HPF (0-5/HPF); Squamous Epithelial Cell Urine 0-1 /HPF (0-5/HPF); WBC Urine 5-10/HPF (0-5/HPF)
[2022-06-22 12:14] LABS: Hemoglobin A1C% w Est Avg Glu 5.2 % (4.0-6.0)
[2022-06-22 12:24] LABS: TSH w/ Reflex to FT4 2.74 uIU/mL (0.47-4.68)
[2022-06-22 16:15] LABS: Creatinine Urine Random 133.5 mg/dL
[2022-06-22 16:23] LABS: Microalbumi Creatinin Ratio Ur 14.2 ug/mg CR (<30); Microalbumin Urine Random 1.9 mg/dL (0-1.6)
== END ==
PROVIDERS: PCP Family Medicine; Referring Provider Family Medicine; Visit Provider Family Medicine
DX: U09.9 Post COVID-19 condition, unspecified (principal); R05.9 Cough, unspecified; F41.9 Anxiety disorder, unspecified; M54.17 Radiculopathy, lumbosacral region; M96.1 Postlaminectomy syndrome, not elsewhere classified; R35.0 Frequency of micturition; M54.50 Low back pain, unspecified; G89.4 Chronic pain syndrome
CPT/HCPCS: 36415; 71046; 80053; 80061; 81001; 82043; 82570; 83036; 84443; 85025; 87086

== ENCOUNTER → 2022-06-30 15:56 | Outpatient (CLI) | payer MEDICARE, MEDICAID, SELFPAY | PROVIDERS: PCP Family Medicine; Visit Provider Obstetrics & Gynecology | DX: R35.0 Frequency of micturition (principal) | CPT/HCPCS: 81002; 87086 ==

== ENCOUNTER → 2022-07-29 09:40 | Outpatient (CLI) | payer MEDICARE, MEDICAID, SELFPAY ==
--- NOTE | 2022-08-04 08:37 | PM.PFT.1 ---
Pulmonary Function Test Referral & Results Date Patient Seen: 07/29/22 Results: The spirometry demonstrates an FVC of 2.74 L which is 64% of predicted. The FEV1 was measured at 2.15 L which is 64% of predicted. The FEV1/FVC ratio was 78 which is 97% of predicted. Following the administration of bronchodilator there was a 24% improvement in FEV1 and an 87% improvement in FEF 25-75%. Lung volumes show an SVC of 3.19 L which is 84% of predicted. The diffusing capacity was measured at 21.26 which is 65% of predicted. No hemoglobin value was provided, so no correction for potential anemia could be made, if appropriate. The maximum voluntary ventilation was reduced Interpretation: This study demonstrates mild obstructive lung disease based on reduction FEV1 although FEV1/FVC ratio is relatively preserved, there is evidence of significant benefit following bronchodilator administration as above There is a mild reduction in lung volumes suggesting the presence of mild restrictive lung disease There is a moderate reduction diffusing capacity suggesting disease at the capillary alveolar level as well Clinical correlation suggested
== END ==
PROVIDERS: PCP Family Medicine; Referring Provider Family Medicine; Visit Provider Family Medicine
DX: J98.8 Other specified respiratory disorders (principal); U09.9 Post COVID-19 condition, unspecified; F17.210 Nicotine dependence, cigarettes, uncomplicated
CPT/HCPCS: 94060; 94726; 94729

== ENCOUNTER → 2022-08-13 13:23 | Outpatient (CLI) | payer MEDICARE, MEDICAID, SELFPAY ==
[2022-08-13 13:40] LABS: Appearance Urine UA SL CLOUDY; Bilirubin Urine UA NEGATIVE (NEGATIVE); Color Urine UA YELLOW; Glucose Urine UA NEGATIVE (Negative); Ketones Urine UA NEGATIVE (NEGATIVE); Leukocyte Esterase Urine UA 1+ (NEGATIVE); Nitrite Urine UA NEGATIVE (Negative); Occult Blood Urine UA NEGATIVE (Negative); Protein Urine UA NEGATIVE (Negative); Specific Gravity Urine UA 1.025 (1.000-1.035); Urobilinogen Urine UA 0.2 E.U./dL (0.2)
[2022-08-13 14:10] LABS: Bacteria Urine None Seen; Culture Indicated Urine Cult Not Indicated; RBC Urine None Seen (0-5/HPF); Squamous Epithelial Cell Urine 1-5 /HPF (0-5/HPF); WBC Urine 10-30/HPF (0-5/HPF)
== END ==
PROVIDERS: PCP Family Medicine; Referring Provider Obstetrics & Gynecology; Visit Provider Obstetrics & Gynecology
DX: R35.0 Frequency of micturition (principal)
CPT/HCPCS: 81001

== ENCOUNTER 2022-09-09 07:33 | Outpatient (CLI) | payer MEDICARE, MEDICAID, SELFPAY ==
[2022-09-09] VITALS (10 sets, daily range): BP systolic 113–135; BP diastolic 60–75; PULSE 77–83; RESP 17–24; TEMP 36.8; O2SAT 98–100
--- NOTE | 2022-09-09 07:34 | DI.RAD.S_ITS ---
PROCEDURE: PAIN L/S FACET INJ/BLK 1ST ELIANA COMPARISON: [facility], , PAIN L/S FACET INJ/BLK 1ST ELIANA, 03/02/2022, 11:56. INDICATIONS: SPONDYLOSIS FINDINGS: Fluoroscopic spot filming was performed to verify placement of spinal needles on both sides at the L4, L5, and S1 levels, as labeled on the films. Appropriate location of the needle tips was confirmed by injection of iodinated contrast. IMPRESSION: Intraprocedural examination demonstrating appropriate positions of the needles. Dictated by: Avi Garcia M.D. on 09/09/2022 at 10:07 Approved by: Avi Garcia M.D. on 09/09/2022 at 10:07
[2022-09-09] MEDS: MIDAZOLAM 2 MG/2 ML VIAL 4 MG IV (08:34)
[2022-09-09] MEDS: IOPAMIDOL 15 ML VIAL 3 ML INJ (08:39)
[2022-09-09] MEDS: LIDOCAINE 2% INJ SDV 5ML 1 ML INJ (08:39)
[2022-09-09] MEDS: LIDOCAINE 1% (PF) 5 ML INJ (08:39)
--- NOTE | 2022-09-09 08:58 | P.PCN_ITS ---
Date/Time/Diagnoses Date of procedure: 09/09/22 Time of procedure: 08:58 Pre-procedure diagnosis: 1. FACET ARTHROPATHY Post-procedure diagnosis: same Procedure Notes Procedure: 1. BILATERAL- L4, L5 and S1 DIAGNOSTIC MB BLOCKS with SA Anesthetic Indications: Nick is referred by Dr. Dumont for treatment of Bilateral Axial LBP. Physician: Harrison Martin Total Fluoroscopy time (seconds): 18 Total sedation minutes: 20 Complications: none Procedure in detail & Post-procedure care: DESCRIPTION OF PROCEDURE Fluoroscopically guided, contrast-controlled bilateral L4, L5 and S1 medial branch blocks with 0.5cc of 2% Lidocaine. Following review of allergy and review of potential side effects and complications, including, but not necessarily limited to, infection, allergic reaction, local tissue breakdown, nerve injury, paralysis, stroke and possible , the patient indicated that the patient understood and agreed to proceed. An informed consent document was signed by the patient, witnessed by a nurse, and placed in the patient's chart. After review of previous anaesthesic history and IV conscious sedation the patient was deemed safe to proceed with today's procedure with IV conscious sedation as ASA class II designation. Safety time-out was performed to confirm patient ID, procedure to be performed and site of procedure. IV sedation was accomplished with a combination of 4mg of Versed was administered by the RN after DO order, titrated to patient comfort during the course of the procedure while the patient remained responsive to all verbal commands In the prone position, following sterile prep and drape of the lumbar region, the right L4, L5 and S1 anatomical location of the medial branch of the dorsal ramus was identified fluoroscopically. Subsequently an anesthetic skin wheal using 1% lidocaine solution was initiated at each of the anatomical spots. Subsequently then a 22-gauge 5-inch spinal needle was atraumatically introduced and advanced under fluoroscopic guidance at each of the corresponding sites at the right L4, L5 and S1 MB. After negative aspiration, 0.2cc of Isovue 200 was injected, confirming placement without vascular or intrathecal uptake. Subsequently then 0.5cc of 2% Lidocaine solution was injected at each of the corresponding sites at the right L4, L5 and S1 medial branch locations. The identical procedure was replicated on the left. The patient tolerated the procedure well without signs or symptoms of complications prior to transfer to the recovery area continued monitoring without incident. Post-procedure, the patient was monitored initiating provocative activities to measure the amount of relief from block of the facetogenic pain. The patient reported a VAS of 7 prior to the procedure and a post-procedure VAS of 5. It has been a pleasure to assist in the diagnostic and therapeutic care of your patient. POST OP INSTRUCTIONS The patient was provided with a Pain Log to complete over the next several hours and subsequent days prior to the patient's follow up with the ordering physician. If the patient has parking regulation enforcement officer relief to the solution applied, then they may be a candidate for medial branch rhizotomy. The patient is aware, was provided, once again, with a Pain Log and will follow up with the referring physician for review and clinical correlation
== END 2022-09-09 09:11 | disposition home or self-care (01) ==
LOC: RAD 07:34
PROVIDERS: PCP Family Medicine; Referring Provider Physical Medicine & Rehabilitation; Visit Provider Physical Medicine & Rehabilitation
DX: M47.816 Spondylosis without myelopathy or radiculopathy, lumbar region (principal); M47.817 Spondylosis without myelopathy or radiculopathy, lumbosacral region
CPT/HCPCS: 64493; 64494; 99152; J2250

== ENCOUNTER 2023-02-01 07:42 | Outpatient (CLI) | payer MEDICARE, MEDICAID, SELFPAY ==
[2023-02-01] VITALS (15 sets, daily range): BP systolic 116–138; BP diastolic 76–94; PULSE 71–81; RESP 10–21; TEMP 36.4; O2SAT 97–100
--- NOTE | 2023-02-01 | DI.RAD.S_ITS ---
PROCEDURE: PAIN L/S MED/LAT N RFA BILAT INDICATIONS: SPONDYLOSIS COMPARISON: [facility], , PAIN L/S FACET INJ/BLK 1ST ELIANA, 09/09/2022, 8:40. FINDINGS: Fluoroscopic spot filming was performed to verify placement of spinal needles on both sides at the L4, L5, and S1 levels, as labeled on the films. IMPRESSION: Images during rhizotomy within normal limits. Dictated by: Avi Garcia M.D. on 02/01/2023 at 9:41 Approved by: Avi Garcia M.D. on 02/01/2023 at 9:41
[2023-02-01] MEDS: MIDAZOLAM 2 MG/2 ML VIAL IV ×2 (08:14→08:44)
[2023-02-01] MEDS: fentaNYL 100 MCG/2 ML INJ 50 MCG IV (08:14)
[2023-02-01] MEDS: LIDOCAINE 1% 20 ML 5 ML INJ (08:22)
[2023-02-01] MEDS: BUPIVACAINE 0.5% (PF) 10 ML VIAL 5 ML INJ (08:22)
--- NOTE | 2023-02-01 09:03 | P.PCN_ITS ---
Date/Time/Diagnoses Date of procedure: 02/01/23 Time of procedure: 09:03 Pre-procedure diagnosis: 1. RECALCITRANT FACET ARTHROPATHY Post-procedure diagnosis: same Procedure Notes Procedure: 1. BILATERAL L4 AND L5 MEDIAL BRANCH RADIOFREQUENCY NEUROTOMY AND S1 DORSAL RAMUS BRANCH RADIOFREQUENCY NEUROTOMY Indications: Nick is referred by Dr. Dumont for treatment of facet arthropathy. Physician: Harrison Martin Total Fluoroscopy time (seconds): 28 Total sedation minutes: 44 Complications: none Procedure in detail & Post-procedure care: DESCRIPTION OF PROCEDURE Bilateral L4 and L5 medial branch radiofrequency neurotomy and bilateral S1 dorsal ramus radiofrequency neurotomy under fluoroscopy with conscious sedation. The patient is well known to this clinic having undergone previous facet injections with good but temporary relief. The patient has experienced appropriate, concordant relief with previous facet and median branch blocks but the patient's pain has been recalcitrant to further conservative measures. Therefore, based upon the patient's relief and persistent symptoms, the patient is considered an appropriate candidate for facet rhizotomy. All of the patient's questions regarding the risks versus benefits of the procedure, including, but not limited to, bleeding, infection, temporary as well as lasting nerve injury, paralysis, stroke, and , as well treatment alternatives were answered to satisfaction. After obtaining informed consent, denial of pertinent drug allergies, as well as being made aware of the potential risks of bleeding, infection, spinal cord trauma, paralysis, temporary and permanent nerve damage, seizure, stroke, and possible , the patient was brought to the fluoroscopy suite and positioned prone on the fluoroscopy table. The lumbar region was prepped with Betadine and covered with a fenestrated drape in the usual sterile fashion. Appropriate monitors applied including pulse oximeter, pulse, and blood pressure for regular monitoring throughout the procedure. After review of previous anaesthesic history and IV conscious sedation the patient was deemed safe to proceed with today's procedure with IV conscious sedation as ASA class II designation. Safety time-out was performed to confirm patient ID, procedure to be performed and site of procedure. IV sedation was accomplished with a combination of 4mg of Versed and 50mcg of Fentanyl administered by the RN after DO order, titrated to patient comfort during the course of the procedure while the patient remained responsive to all verbal commands. After local infiltration using 1% lidocaine, under fluoroscopic guidance, a 10- cm RF insulated needle with a 10-mm active tip was positioned parallel to the junction of the right sacral ala and the superior articulating process where the S1 dorsal ramus resides. Needle placement was confirmed with motor stimulation of .5v on the right which produced local stimulation without radicular component. The stimulation was then increased to 2v with, once again, only local multifidus stimulation without radicular component. The needle was then removed and the identical procedure was performed along the length of the right L5 medial branch with motor stimulation at .7v on the right. The identical procedure was once again performed along the length of the right L4 medial branch with motor stimulation of .5v on the right. The medial branches were then anesthetised with 0.5% Marcaine. This was then followed by two discreet lesions performed at 80 degrees Celsius for 90 seconds each. The identical procedure was repeated on the left. The patient tolerated the procedure well without signs or symptoms of complications prior to transfer to the recovery area continued monitoring without incident. The patient was then transferred to the recovery area where they were observed for an appropriate period of time after the injection. The patient reported a VAS score of 9 prior to the procedure and a post-procedure VAS of 1. POST OP INSTRUCTIONS The patient was provided a Pain Log to continue to record the patient's response to the target-specific procedure prior to the patient's follow-up visit with the referring physician. Additionally, specific post-injection care instructions and a contact number to our office were provided if concerns arise regarding possible complications associated with the procedure are suspected.
== END 2023-02-01 09:14 | disposition home or self-care (01) ==
PROVIDERS: PCP Family Medicine; Referring Provider Physical Medicine & Rehabilitation; Visit Provider Physical Medicine & Rehabilitation
DX: M47.816 Spondylosis without myelopathy or radiculopathy, lumbar region (principal); M47.817 Spondylosis without myelopathy or radiculopathy, lumbosacral region
CPT/HCPCS: 64635; 64636; 99152; 99153; J2250; J3010

== ENCOUNTER → 2023-06-29 10:19 | Outpatient (CLI) | payer OTHER, MEDICAID, SELFPAY ==
--- NOTE | 2023-06-29 10:20 | DI.RAD.S_ITS ---
Bone Density Report Name: CINDY MEEHAN Age: 53 Sex: Female Ethnicity: White Date of : 1970 Indication: postmenopausal; screening for osteoporosis; prior fracture; Referring Provider: AROLDO GUSTAFSON Study: Bone densitometry was performed. Exam Date: June 29, 2023 Accession number: [id number] Bone Density: Region BMD T-score Z-score Classification AP Spine(L1, L2) 1.003 0.2 1.1 Normal Femoral Neck (Left) 0.557 -2.6 -1.6 Osteoporosis Total Hip (Left) 0.844 -0.8 -0.2 Normal Femoral Neck (Right) 0.627 -2.0 -1.0 Osteopenia Total Hip (Right) 0.804 -1.1 -0.5 Osteopenia Total Hip Mean 0.824 -1.0 -0.4 Normal World Health Organization criteria for BMD impression classify patients as: Normal (T-score at or above -1.0), Osteopenia (T-score between -1.0 and -2.5), or Osteoporosis (T-score at or below -2.5). 10-year Fracture Risk: FRAX not reported because: Some T-score for Spine Total or Hip Total or Femoral Neck at or below -2.5 Prior hip or vertebral fracture Impression: The patient has established osteoporosis, based on the Left Femoral Neck T-score and the existence of a prior fracture. The patient has risk factors, including: previous fracture. Discussion: HIGH RISK OF FRACTURE. BONE DENSITY IS UNDESIRABLY LOW AT ONE OR MORE SKELETAL SITES, CONSISTENT WITH POSTMENOPAUSAL OSTEOPOROSIS. This patient's lowest T-score, in a patient who has previously fractured, meets the World Health Organization's (WHO) criteria for severe osteoporosis. In untreated patients, the risk of osteoporotic fracture increases approximately two-fold for each 1.0 SD decrease in T-score. Low bone density is not the only risk factor for fracture; also consider factors such as patient's age, frailty or poor health, risk of falling, risk of injury, previous osteoporotic fracture, family history of osteoporosis, cigarette smoking, low body weight, etc. Not everyone with low bone mineral density has osteoporosis; osteomalacia and other metabolic bone disorders should also be considered. Patients who have osteoporosis should be evaluated for specific diseases and conditions (secondary causes) that may cause or contribute to bone loss. The [place] [employer]ocrinologists (AACE) and National Osteoporosis Foundation (NOF) recommend pharmacologic intervention for all postmenopausal women with a previous hip or vertebral fracture and a T-score in this range. The patient should follow a healthful lifestyle (good nutrition with adequate calcium and vitamin D, and appropriate weight-bearing exercise). Follow-Up: Consider a repeat BMD and Vertebral Fracture Assessment (VFA) exam in 2 years or sooner if medically necessary, to reassess this patient's status. Reported by: SUGAR WESTBROOK MD on 06/29/2023 10:54:00 AM.
== END ==
LOC: RAD 10:19
PROVIDERS: Family Provider Family Medicine; PCP Family Medicine; Referring Provider Family Medicine; Visit Provider Family Medicine
DX: Z78.0 Asymptomatic menopausal state (principal); M81.0 Age-related osteoporosis without current pathological fracture; M85.89 Other specified disorders of bone density and structure, multiple sites
CPT/HCPCS: 77080

== ENCOUNTER → 2023-07-28 11:29 | Outpatient (CLI) | payer MEDICARE, MEDICAID, SELFPAY | PROVIDERS: Family Provider Family Medicine; PCP Family Medicine; Referring Provider Physical Medicine & Rehabilitation; Visit Provider Physical Medicine & Rehabilitation | DX: Z98.890 Other specified postprocedural states (principal); M51.26 Other intervertebral disc displacement, lumbar region | CPT/HCPCS: 95886; 95910 ==

== ENCOUNTER → 2023-09-08 10:04 | Outpatient (CLI) | payer MEDICARE, MEDICAID, SELFPAY ==
--- NOTE | 2023-09-08 10:07 | DI.RAD.S_ITS ---
PROCEDURE: XR ANKLE RT MIN 3V INDICATIONS: ANKLE PAIN TECHNIQUE: 3 views of the ankle were acquired. COMPARISON: [facility], , ANKLE 3 VIEWS RIGHT, 06/29/2016, 10:42. FINDINGS: Bones: Post ORIF changes are seen in distal fibular shaft and lateral malleolus. No evidence of hardware loosening or failure is seen. Old healed distal fibular shaft fracture is seen. No acute fracture or dislocation. Ankle mortise is normally aligned. Osteoarthritic changes are noted in tibiotalar joint. No suspicious bony lesions. Soft tissues: No tibiotalar joint effusion. Achilles tendon appears normal. IMPRESSION: Post ORIF changes in distal fibular shaft/lateral malleolus with old healed distal fibular shaft fracture. Tibiotalar joint osteoarthritis. No acute fracture or dislocation. No gross hardware loosening or failure. Dictated by: Daron Clark M.D. on 09/09/2023 at 13:22 Approved by: Daron Clark M.D. on 09/09/2023 at 13:26
--- NOTE | 2023-09-08 10:07 | DI.RAD.S_ITS ---
PROCEDURE: XR ANKLE LT MIN 3V INDICATIONS: ANKLE PAIN TECHNIQUE: 3 views of the ankle were acquired. COMPARISON: None. FINDINGS: Bones: No fractures or dislocations. Ankle mortise is normally aligned. No suspicious bony lesions. Soft tissues: No suspicious soft tissue calcifications. IMPRESSION: No acute osseous abnormality. If symptoms persist or if there is continued clinical concern, cross-sectional imaging such as MRI or CT may be helpful for further evaluation. Approved by: Lino Pitts M.D. on 09/08/2023 at 15:32
--- NOTE | 2023-09-08 10:08 | DI.RAD.S_ITS ---
PROCEDURE: XR FOOT LT MIN 3V INDICATIONS: FOOT PAIN TECHNIQUE: 3 views of the foot were acquired. COMPARISON: [facility], , FOOT 3V LEFT, 07/22/2011, 16:38. FINDINGS: Bones: No fractures identified. No dislocations. No suspicious bony lesions. Soft tissues: No tibiotalar joint effusion. Achilles tendon appears normal. IMPRESSION: No fracture identified. Dictated by: Eligio Frederick M.D. on 09/09/2023 at 1:02 Approved by: Eligio Frederick M.D. on 09/09/2023 at 1:04
--- NOTE | 2023-09-08 10:08 | DI.RAD.S_ITS ---
PROCEDURE: XR FOOT RT MIN 3V INDICATIONS: FOOT PAIN TECHNIQUE: 3 views of the foot were acquired. COMPARISON: [facility], , FOOT 3V LEFT, 07/22/2011, 16:38. FINDINGS: Bones: No fractures or dislocations. No suspicious bony lesions. Distal fibula jay with screw fixation. Moderate degenerative changes at the 1st MTP joint. Otherwise mild degenerative changes. Soft tissues: No tibiotalar joint effusion. Achilles tendon appears normal. IMPRESSION: Moderate degenerative changes at the 1st MTP joint. Dictated by: Eligio Frederick M.D. on 09/09/2023 at 1:04 Approved by: Eligio Frederick M.D. on 09/09/2023 at 1:07
[2023-09-08 11:54] LABS: Add Manual Diff / Slide Review NO; Basophils Absolute Auto 0 /uL (0-100); Basophils Percent Auto 0.7 % (0-2); Eosinophils Absolute Auto 300 /uL (0-450); Eosinophils Percent Auto 4.6 % (2-4); Hematocrit 39.5 % (36-46); Hemoglobin 13.6 g/dL (12.0-16.0); Lymphocytes Absolute Auto 1200 /uL (1100-4500); Lymphocytes Percent Auto 19.5 % (25-40); Mean Corpuscular HGB Conc 34.4 % (30-36); Mean Corpuscular Hemoglobin 30.3 PG (26-34); Mean Corpuscular Volume 88.1 fL (80-100); Monocytes Absolute Auto 400 /uL (0-900); Monocytes Percent Auto 5.9 % (3-14); Neutrophils Absolute Auto 4200 /uL (1500-7000); Neutrophils Percent Auto 69.3 % (50-75); Platelet Count 257 X10^3/uL (150-400); Red Blood Cell Count 4.49 X10^6/uL (4.0-5.2); Red Cell Distribution Width 13.3 % (11.6-14.8); White Blood Cell Count 6.1 X10^3/uL (4.5-11.0)
[2023-09-08 12:29] LABS: Alanine Aminotransferase 25 IU/L (<35); Albumin 4.5 g/dL (3.5-5.0); Albumin Globulin Ratio 1.6 (1.0-2.8); Alkaline Phosphatase 89 U/L (38-126); Aspartate Aminotransferase 28 IU/L (14-36); BUN Creatinine Ratio 24.6 (6-22); Bilirubin Total 0.5 mg/dL (0.2-1.3); Blood Urea Nitrogen 15 mg/dL (7-17); Carbon Dioxide 29 mmol/L (22-32); Chloride 107 mmol/L (98-107); Cholesterol 234 mg/dL (140-199); Estimated Glomerular Filt Rate > 60 mL/min (>60); Globulin 2.8 g/dL (1.7-4.1); Glucose 94 mg/dL (70-100); HDL Cholesterol 93 mg/dL (40-60); HEMOLYSIS < 15 (0-50); LDL Cholesterol Calculated 107 mg/dL (<100); Potassium 4.1 mmol/L (3.4-5.1); Sodium 137 mmol/L (137-145); Total Protein 7.3 g/dL (6.3-8.2); Triglycerides 168 mg/dL (35-150)
[2023-09-08 13:01] LABS: TSH w/ Reflex to FT4 2.63 uIU/mL (0.47-4.68)
[2023-09-08 19:27] LABS: Hemoglobin A1C% w Est Avg Glu 5.3 % (4.0-6.0)
[2023-09-09 04:55] LABS: Apolipoprotein B 96 mg/dL (<90)
== END ==
LOC: RAD 10:05
PROVIDERS: Family Provider Family Medicine; PCP Family Medicine; Referring Provider Podiatrist Foot & Ankle Surgery; Visit Provider Podiatrist Foot & Ankle Surgery
DX: M19.071 Primary osteoarthritis, right ankle and foot (principal); M25.571 Pain in right ankle and joints of right foot; M25.572 Pain in left ankle and joints of left foot; M79.671 Pain in right foot; M79.672 Pain in left foot; M54.12 Radiculopathy, cervical region; M47.817 Spondylosis without myelopathy or radiculopathy, lumbosacral region; F32.0 Major depressive disorder, single episode, mild; E78.00 Pure hypercholesterolemia, unspecified; R03.0 Elevated blood-pressure reading, without diagnosis of hypertension
CPT/HCPCS: 36415; 73610; 73620; 73630; 80053; 80061; 82172; 83036; 84443; 85025

== ENCOUNTER → 2023-09-14 08:32 | Outpatient (CLI) | payer MEDICARE, MEDICAID, SELFPAY | PROVIDERS: Family Provider Family Medicine; PCP Family Medicine; Visit Provider Obstetrics & Gynecology | DX: R82.998 Other abnormal findings in urine (principal); N39.41 Urge incontinence | CPT/HCPCS: 87086 ==

== ENCOUNTER → 2023-11-23 07:57 | Outpatient (CLI) | payer OTHER, MEDICAID, SELFPAY ==
--- NOTE | 2023-11-23 07:58 | DI.CT.S_ITS ---
PROCEDURE: CT LUMBAR SPINE WO CON INDICATIONS: LUMBAR SPONDYLOSIS WITH RADICULOPATHY TECHNIQUE: Noncontrast 3 mm thick sections acquired from the T12 level to the sacrum. Sagittal and coronal reformats were constructed. For radiation dose reduction, the following was used: automated exposure control. COMPARISON: None. FINDINGS: Image quality: Excellent. Bones: There is normal bony alignment. No acute vertebral body compression fractures. No suspicious lytic or blastic bony lesions. No pars defects. L3-4 interbody fusion with posterior jay and screw instrumentation in appropriate position. Convex right thoracolumbar scoliosis. T12-L1: Disc space narrowing and disc bulge without central or right foraminal stenosis. Moderate left foraminal stenosis L1-L2: Disc space narrowing, disc bulge and arthropathy combined result in mild central stenosis. Moderate right and severe left foraminal stenosis. L2-L3: Disc space narrowing and disc bulge with arthropathy and ligamentum flavum laxity combined result in moderate central stenosis. Moderate bilateral foraminal stenosis L3-L4: Discectomy and fusion. No central stenosis. Moderate bilateral foraminal stenosis L4-L5: Disc space narrowing, vacuum disc phenomena and arthropathy results in mild to moderate central stenosis. Moderate bilateral foraminal stenosis L5-S1: Disc space narrowing hypertrophic facet joints. No central stenosis. Mild right and moderate left foraminal stenosis Soft tissues: No retroperitoneal masses or hematomas. Visualized aorta is normal in caliber. Bilateral nonobstructing renal calculi measure up to 7 mm on the left IMPRESSION: L3-4 instrumented interbody fusion without hardware failure or loosening. Multilevel degenerative disc disease and arthropathy results in varying degrees of central and foraminal stenosis including mild to moderate central stenosis L4-5. Incidental nonobstructive bilateral renal calculi Approved by: Geoffrey Vallejo M.D. on 11/23/2023 at 14:47
--- NOTE | 2023-11-23 07:59 | DI.MRI.S_ITS ---
PROCEDURE: MR LUMBAR SPINE WO CON INDICATIONS: LUMBAR SPONDYLOSIS WITH RADICULOPATHY TECHNIQUE: Noncontrast sagittal T1 spin echo and T2 fast echo, sagittal STIR, and T2 fast spin echo through the lumbar spine. In cases with scoliosis, additional coronal T2 fast spin echo may be performed. COMPARISON: [facility], CT, CT LUMBAR SPINE WO CON, 11/23/2023, 8:12. [facility], MR, MR LUMBAR SPINE WO CON, 12/07/2021, 16:29. FINDINGS: Image quality: Excellent. Alignment and Curvature: Mild S-shaped scoliotic curvature of the lumbar spine. Remote posterior decompression and posterior lateral jay and pedicle screw fixation and interbody fusion at L3-L4. Remote posterior decompression at L4-L5. Trace retrolisthesis of L2 on L3. Trace anterolisthesis of L4 on L5. Bone Marrow: Marrow is of normal overall signal. No acute vertebral body compression fractures. Spinal Cord: Conus medullaris terminates at the L1-L2 level. Visualized cord demonstrates normal signal and size. Paraspinous Soft Tissues: No paravertebral masses. T11-T12: Disc bulge. No canal stenosis or foraminal stenosis. Facet hypertrophy. T12-L1: Disc bulge. Facet hypertrophy. No canal stenosis or foraminal stenosis. L1-L2: Severe disc height loss. Disc bulge. Facet hypertrophy. No central canal stenosis. There is a small extruded disc fragment sitting in the left lateral recess significantly impinging on the left L2 nerve root in the left lateral recess. Reference sagittal T2 image 10 of series 2 and axial T2 image 15 of series 6. The disc fragment measures approximately 6 mm. It was present on the previous study from 2021. No significant foraminal stenosis. L2-L3: Severe disc height loss. Posterior disc post osteophyte. Facet hypertrophy. There is moderate right foraminal narrowing with flattening deformity on the exiting right L2 nerve root. There is [id number] left foraminal narrowing. L3-L4: Remote posterior decompression and posterior lateral fusion and interbody fusion. No canal stenosis. Bilateral facet hypertrophy. There is moderately severe right foraminal narrowing which occurs somewhat lateral in the right foramen with a degree of right foraminal L3 nerve root impingement. This may have progressed. The left foramen is patent. L4-L5: Disc bulge. Facet hypertrophy. No canal stenosis. Moderate to severe right foraminal narrowing with a degree of right foraminal L4 nerve root impingement. It has progressed. L5-S1: Severe disc height loss. Disc bulge. Facet hypertrophy. No canal stenosis or significant foraminal stenosis. IMPRESSION: 1. Remote surgeries at L3-L4 and L4-L5. There is no canal stenosis at these levels. There is moderate to severe right foraminal narrowing at both of these levels, potentially progressed. 2. Multilevel underlying facet arthropathy. 3. Chronic small extruded disc fragment in the left lateral recess at L1-L2, impinging on the left L2 nerve root. 4. No central canal stenosis. Excellent 5. Multilevel foraminal narrowing as described above. Findings include moderate right foraminal narrowing at L2-L3, moderate to severe right foraminal narrowing at L3-L4, and moderate to severe right foraminal narrowing at L4-L5. Dictated by: Goldy Shipman M.D. on 11/23/2023 at 8:48 Approved by: Goldy Shipman M.D. on 11/23/2023 at 9:01
== END ==
PROVIDERS: Family Provider Family Medicine; PCP Family Medicine; Referring Provider Neurological Surgery; Visit Provider Neurological Surgery
DX: M47.26 Other spondylosis with radiculopathy, lumbar region (principal); M51.16 Intervertebral disc disorders with radiculopathy, lumbar region; M48.061 Spinal stenosis, lumbar region without neurogenic claudication; M47.27 Other spondylosis with radiculopathy, lumbosacral region; M48.07 Spinal stenosis, lumbosacral region; N20.0 Calculus of kidney
CPT/HCPCS: 72131; 72148

== ENCOUNTER → 2024-03-09 10:28 | Outpatient (CLI) | payer MEDICARE, MEDICAID, SELFPAY | PROVIDERS: Family Provider Family Medicine; PCP Family Medicine; Visit Provider Obstetrics & Gynecology | DX: R35.0 Frequency of micturition (principal) | CPT/HCPCS: 87086 ==

== ENCOUNTER → 2024-04-17 10:12 | Outpatient (CLI) | payer MEDICARE, MEDICAID, SELFPAY ==
--- NOTE | 2024-04-17 10:13 | DI.RAD.S_ITS ---
PROCEDURE: XR HIP W PEL IF DONE LT 2V INDICATIONS: Left Hip Pain TECHNIQUE: AP pelvis with lateral view(s) of the left hip(s). COMPARISON: [facility], CR, [id number] W PEL IF PERFORMED, 01/18/2017, 15:52. FINDINGS: Bones: Asymmetric moderate to severe left hip joint osteoarthritic changes are seen with near complete loss of superior joint space, extensive subchondral sclerosis and small marginal osteophyte formation. No fractures or dislocations. No evidence of avascular necrosis of femoral head. Pelvic ring appears intact. No suspicious bony lesions. Postsurgical changes are seen in lower lumbar spine. Soft tissues: The visualized bowel gas pattern is normal. No suspicious soft tissue calcifications. IMPRESSION: Asymmetric moderate to severe left hip joint osteoarthritis. Finding has significantly worsened since 2017 study. No acute left hip fracture or dislocation. No evidence of avascular necrosis of femoral head. Dictated by: Daron Clark M.D. on 04/17/2024 at 17:01 Approved by: Daron Clark M.D. on 04/17/2024 at 17:01
== END ==
PROVIDERS: Family Provider Family Medicine; PCP Family Medicine; Referring Provider Family Medicine; Visit Provider Family Medicine
DX: M16.12 Unilateral primary osteoarthritis, left hip (principal); M25.552 Pain in left hip
CPT/HCPCS: 73502

== ENCOUNTER → 2024-10-12 12:50 | Outpatient (CLI) | payer MEDICARE, MEDICAID, SELFPAY ==
[2024-10-12 14:41] LABS: Add Manual Diff / Slide Review NO; Basophils Absolute Auto 0 /uL (0-100); Basophils Percent Auto 0.8 % (0-2); Eosinophils Absolute Auto 300 /uL (0-450); Eosinophils Percent Auto 6.1 % (2-4); Hemoglobin 13.3 g/dL (12.0-16.0); Lymphocytes Absolute Auto 1500 /uL (1100-4500); Lymphocytes Percent Auto 28.9 % (25-40); Mean Corpuscular HGB Conc 33.2 % (30-36); Mean Corpuscular Hemoglobin 28.3 PG (26-34); Mean Corpuscular Volume 85.3 fL (80-100); Monocytes Absolute Auto 400 /uL (0-900); Monocytes Percent Auto 7.6 % (3-14); Neutrophils Absolute Auto 2900 /uL (1500-7000); Neutrophils Percent Auto 56.6 % (50-75); Platelet Count 275 X10^3/uL (150-400); Red Blood Cell Count 4.69 X10^6/uL (4.0-5.2); Red Cell Distribution Width 14.1 % (11.6-14.8); White Blood Cell Count 5.1 X10^3/uL (4.5-11.0)
[2024-10-12 14:56] LABS: Alanine Aminotransferase 15 IU/L (<35); Albumin 4.6 g/dL (3.5-5.0); Albumin Globulin Ratio 1.9 (1.0-2.8); Alkaline Phosphatase 85 U/L (38-126); Aspartate Aminotransferase 20 IU/L (14-36); Bilirubin Total 0.4 mg/dL (0.2-1.3); Blood Urea Nitrogen 12 mg/dL (7-17); C-Reactive Protein Quant < 0.5 mg/dL (<1.0); Calcium 10.5 mg/dL (8.4-10.2); Carbon Dioxide 22 mmol/L (22-32); Chloride 106 mmol/L (98-107); Estimated Glomerular Filt Rate > 60 mL/min (>60); Globulin 2.4 g/dL (1.7-4.1); Glucose 116 mg/dL (70-99); HEMOLYSIS < 15 (0-50); Potassium 4.6 mmol/L (3.4-5.1); Sodium 135 mmol/L (137-145)
[2024-10-12 15:46] LABS: Erythrocyte Sedimentation Rate 4 MM/HR (0-20)
[2024-10-16 03:11] LABS: Calcium 10.1 mg/dL (8.7-10.2); Parathyroid Hormone, Intact 89 pg/mL (15-65)
== END ==
PROVIDERS: Family Provider Family Medicine; PCP Family Medicine; Referring Provider Orthopaedic Surgery; Visit Provider Orthopaedic Surgery
DX: Z01.818 Encounter for other preprocedural examination (principal); R68.89 Other general symptoms and signs; E83.52 Hypercalcemia
CPT/HCPCS: 36415; 80053; 82310; 83970; 85025; 85651; 86140

== ENCOUNTER → 2024-11-20 10:09 | Outpatient (CLI) | payer MEDICARE, MEDICAID, SELFPAY ==
[2024-11-20 11:05] LABS: Hemoglobin A1C% w Est Avg Glu 4.6 % (4.0-6.0)
[2024-11-20 11:08] LABS: Glucose 93 mg/dL (70-99)
== END ==
PROVIDERS: Family Provider Family Medicine; PCP Family Medicine; Referring Provider Family Medicine; Visit Provider Family Medicine
DX: R73.01 Impaired fasting glucose (principal)
CPT/HCPCS: 36415; 82947; 83036

== ENCOUNTER → 2024-12-17 15:27 | Outpatient (CLI) | payer MEDICARE, MEDICAID, SELFPAY ==
[2024-12-17 16:54] LABS: TSH w/ Reflex to FT4 3.08 uIU/mL (0.47-4.68)
== END ==
PROVIDERS: Family Provider Family Medicine; PCP Family Medicine; Referring Provider Family Medicine; Visit Provider Family Medicine
DX: E07.9 Disorder of thyroid, unspecified (principal)
CPT/HCPCS: 36415; 84443

== ENCOUNTER → 2025-02-05 10:29 | Outpatient (CLI) | payer MEDICARE, MEDICAID, SELFPAY ==
[2025-02-05 11:23] LABS: Alanine Aminotransferase 17 IU/L (<35); Albumin 4.5 g/dL (3.5-5.0); Albumin Globulin Ratio 1.7 (1.0-2.8); Alkaline Phosphatase 93 U/L (38-126); Blood Urea Nitrogen 11 mg/dL (7-17); Calcium 10.4 mg/dL (8.4-10.2); Carbon Dioxide 26 mmol/L (22-32); Chloride 105 mmol/L (98-107); Estimated Glomerular Filt Rate > 60 mL/min (>60); Globulin 2.7 g/dL (1.7-4.1); Glucose 100 mg/dL (70-99); HEMOLYSIS 19 (0-50); Potassium 4.4 mmol/L (3.4-5.1); Sodium 136 mmol/L (137-145); Total Protein 7.2 g/dL (6.3-8.2)
[2025-02-05 11:47] LABS: Add Manual Diff / Slide Review NO; Hematocrit 40.9 % (36-46); Hemoglobin 13.7 g/dL (12.0-16.0); Lymphocytes Absolute Auto 1300 /uL (1100-4500); Mean Corpuscular HGB Conc 33.4 % (30-36); Mean Corpuscular Hemoglobin 27.6 PG (26-34); Mean Corpuscular Volume 82.5 fL (80-100); Platelet Count 332 X10^3/uL (150-400)
[2025-02-05 11:53] LABS: TSH w/ Reflex to FT4 1.42 uIU/mL (0.47-4.68)
== END ==
PROVIDERS: PCP Family Medicine; Referring Provider Family Medicine; Visit Provider Family Medicine
DX: R00.2 Palpitations (principal); R06.02 Shortness of breath
CPT/HCPCS: 36415; 80053; 84443; 85025; 85379

== ENCOUNTER → 2025-02-07 15:28 | Outpatient (CLI) | payer OTHER, MEDICAID, SELFPAY ==
[2025-02-07 16:53] LABS: Alanine Aminotransferase 14 IU/L (<35); Albumin 4.2 g/dL (3.5-5.0); Albumin Globulin Ratio 1.6 (1.0-2.8); Alkaline Phosphatase 94 U/L (38-126); Blood Urea Nitrogen 10 mg/dL (7-17); Calcium 10.1 mg/dL (8.4-10.2); Carbon Dioxide 24 mmol/L (22-32); Chloride 107 mmol/L (98-107); Estimated Glomerular Filt Rate > 60 mL/min (>60); Globulin 2.6 g/dL (1.7-4.1); Glucose 84 mg/dL (70-99); HEMOLYSIS < 15 (0-50); Magnesium 2.2 mg/dL (1.6-2.3); Phosphorous 3.0 mg/dL (2.5-4.5); Potassium 4.2 mmol/L (3.4-5.1); Sodium 136 mmol/L (137-145); Total Protein 6.8 g/dL (6.3-8.2)
[2025-02-07 17:09] LABS: Vitamin D 25 Hydroxy (D3) 42.3 ng/mL (30.0-100.0)
== END ==
PROVIDERS: PCP Family Medicine; Visit Provider Student in an Organized Health Care Education/Training Program
DX: E21.3 Hyperparathyroidism, unspecified (principal)
CPT/HCPCS: 36415; 80053; 82306; 83735; 83970; 84100

== ENCOUNTER → 2025-02-11 08:13 | Outpatient (CLI) | payer OTHER, MEDICAID, SELFPAY | LOC: CAR 08:14 | PROVIDERS: PCP Family Medicine; Referring Provider Family Medicine; Visit Provider Family Medicine | DX: R00.0 Tachycardia, unspecified (principal); R00.2 Palpitations; R06.02 Shortness of breath | CPT/HCPCS: 93242 ==

== ENCOUNTER → 2025-02-11 08:17 | Outpatient (CLI) | payer OTHER, MEDICAID, SELFPAY ==
--- NOTE | 2025-02-11 08:18 | DI.US.S_ITS ---
PROCEDURE: US THYROID INDICATIONS: HYPERTHYROIDISM TECHNIQUE: Real-time scanning was performed of the thyroid gland, with image documentation. COMPARISON: None. FINDINGS: Thyroid: Right lobe measures 3.7 x 1.9 x 1.4 cm. Left lobe measures 4.1 x 1.3 x 1.2 cm. Isthmus is 0.3 cm thick. Echotexture is homogeneous. No nodules identified. IMPRESSION: Normal thyroid ultrasound. ACR TI-RADS definitions and recommendations: TI-RADS 1 (benign): 0 points. FNA not needed. TI-RADS 2 (not suspicious): 2 points. FNA not needed. TI-RADS 3: 3 points. * FNA if 2.5 cm or larger, follow up if 1.5 cm or larger (at 1, 3, and 5 years). TI-RADS 4: 4-6 points. * FNA if 1.5 cm or larger, follow up if 1 cm or larger (at 1, 2, 3, and 5 years). TI-RADS 5: 7 points or more. * FNA if 1 cm or larger, follow up if 0.5 cm or larger (every year for 5 years). Dictated by: Mark Jerome M.D. on 02/11/2025 at 13:26 Approved by: Mark Jerome M.D. on 02/11/2025 at 13:28
== END ==
PROVIDERS: PCP Family Medicine; Referring Provider Family Medicine
DX: E21.3 Hyperparathyroidism, unspecified (principal); R00.0 Tachycardia, unspecified; R00.2 Palpitations; R06.02 Shortness of breath
CPT/HCPCS: 76536; 93242

== ENCOUNTER → 2025-02-11 08:46 | Outpatient (CLI) | payer OTHER, MEDICAID, SELFPAY ==
[2025-02-11 09:44] LABS: Creatinine, Serum (CRCL) 0.80 mg/dL (0.52-1.04)
[2025-02-11 10:05] LABS: Creat Clearance, Corrected 73.0 mL/MIN; Creatinine Clearance Urine 90.5 mL/MIN; Patient Height Urine 70 inches; Patient Weight Urine 215 lbs; Total Volume Urine 1450 mL
[2025-02-11 11:03] LABS: Calcium 24 Hour Urine 207 mg/day (100-300); Total Volume Urine 1450 mL
== END ==
PROVIDERS: PCP Family Medicine; Referring Provider Student in an Organized Health Care Education/Training Program; Visit Provider Student in an Organized Health Care Education/Training Program
DX: E21.3 Hyperparathyroidism, unspecified (principal); R00.0 Tachycardia, unspecified; R00.2 Palpitations; R06.02 Shortness of breath
CPT/HCPCS: 36415; 76536; 82340; 82575; 93242

== ENCOUNTER → 2025-03-18 15:11 | Outpatient (CLI) | payer OTHER, MEDICAID, SELFPAY ==
--- NOTE | 2025-03-18 15:14 | DI.CT.S_ITS ---
PROCEDURE: CT SOFT TISSUE NECK WO/W CON INDICATIONS: hyperparathyroidism TECHNIQUE: Before and after the administration of intravenous contrast, 2.0 mm axial sections acquired through the neck and down to the ang. Additional 2.0 mm coronal and sagittal reformats were generated of the contrast enhanced images. For radiation dose reduction, the following was used: automated exposure control. COMPARISON: None. FINDINGS: Image quality: Image quality and diagnostic sensitivity study limited secondary to beam hardening artifact related to C5-C7 ACDF postsurgical changes. Parathyroid: No parathyroid nodules identified with peak arterial enhancement and delayed washout. Thyroid: Unremarkable. Lymph nodes: No enlarged lymph nodes seen throughout the neck. Vessels: Visualized vasculature appears patent. Neck spaces: The oropharynx, nasopharynx, and pharynx demonstrate no mucosal lesions. The vocal cords, false vocal cords, pyriform sinuses, epiglottis, vallecula, and tongue base all appear normal. Extramucosal spaces appear unremarkable. Glands: The parotid and submandibular glands appear normal. Miscellaneous: Visualized lungs appear clear. Superficial soft tissues appear normal. Bones: No suspicious bony lesions. Visualized sinuses and mastoids appear unremarkable. IMPRESSION: Image quality and diagnostic sensitivity study limited secondary to beam hardening artifact related to the cervical spine fixation hardware. No definite parathyroid adenoma identified. Consider nuclear medicine parathyroid exam. Dictated by: Hazel Wright MD, PhD on 03/19/2025 at 12:10 Approved by: Hazel Wright MD, PhD on 03/19/2025 at 12:19
== END ==
LOC: CT 15:12
PROVIDERS: PCP Family Medicine; Referring Provider Student in an Organized Health Care Education/Training Program; Visit Provider Student in an Organized Health Care Education/Training Program
DX: E21.3 Hyperparathyroidism, unspecified (principal); E06.9 Thyroiditis, unspecified; Z98.1 Arthrodesis status
CPT/HCPCS: 70492; Q9967

== ENCOUNTER → 2025-03-28 14:32 | Outpatient (CLI) | payer OTHER, MEDICAID, SELFPAY ==
[2025-03-28 15:10] LABS: Add Manual Diff / Slide Review NO; Hematocrit 40.5 % (36-46); Hemoglobin 13.7 g/dL (12.0-16.0); Lymphocytes Absolute Auto 1500 /uL (1100-4500); Mean Corpuscular HGB Conc 33.7 % (30-36); Mean Corpuscular Hemoglobin 28.3 PG (26-34); Mean Corpuscular Volume 84.0 fL (80-100); Platelet Count 292 X10^3/uL (150-400)
[2025-03-28 15:30] LABS: Alanine Aminotransferase 15 IU/L (<35); Albumin 4.5 g/dL (3.5-5.0); Albumin Globulin Ratio 1.7 (1.0-2.8); Alkaline Phosphatase 81 U/L (38-126); Blood Urea Nitrogen 12 mg/dL (7-17); Calcium 10.4 mg/dL (8.4-10.2); Carbon Dioxide 26 mmol/L (22-32); Chloride 102 mmol/L (98-107); Cholesterol 215 mg/dL (140-199); Estimated Glomerular Filt Rate > 60 mL/min (>60); Globulin 2.6 g/dL (1.7-4.1); Glucose 93 mg/dL (70-99); Potassium 4.0 mmol/L (3.4-5.1); Sodium 135 mmol/L (137-145); Total Protein 7.1 g/dL (6.3-8.2); Triglycerides 121 mg/dL (35-150)
[2025-03-28 15:39] LABS: Hemoglobin A1C% w Est Avg Glu 4.9 % (4.0-6.0)
[2025-03-28 15:42] LABS: HEMOLYSIS < 15 (0-50)
[2025-03-28 15:47] LABS: HDL Cholesterol 107 mg/dL (40-60)
[2025-03-28 16:01] LABS: TSH w/ Reflex to FT4 4.78 uIU/mL (0.47-4.68)
[2025-03-28 16:30] LABS: Free T4, Direct Thyroxine 0.96 ng/dL (0.78-2.19)
== END ==
PROVIDERS: PCP Family Medicine; Referring Provider Family Medicine; Visit Provider Family Medicine
DX: Z00.00 Encounter for general adult medical examination without abnormal findings (principal); R79.89 Other specified abnormal findings of blood chemistry; F41.9 Anxiety disorder, unspecified; M84.48XG Pathological fracture, other site, subsequent encounter for fracture with delayed healing; G89.4 Chronic pain syndrome; M81.0 Age-related osteoporosis without current pathological fracture; M96.1 Postlaminectomy syndrome, not elsewhere classified; G89.29 Other chronic pain; M54.50 Low back pain, unspecified
CPT/HCPCS: 36415; 80053; 80061; 83036; 84439; 84443; 85025; 85379